=== PATIENT | male | born 1960 | race African-American/Black ===

== ENCOUNTER 2017-03-24 13:03 | Observation (INO) | payer BC, MEDICARE ==
[~2017-03-24] VITALS: Ht 182.9 cm; Wt 103.5 kg
[~2017-03-24 13:03] MED LIST: AMLO5TAB2 PO; BETH25TA2 PO; CHOL10008 PO; CRANCAP10 PO; FURO1TAB60 PO; LOSA50TA PO; MAGN400T3 PO; METO50TA PO; MILL5TAB PO; MULTTAB4 PO; NOVOLOGSS IMPLANT; PANT40TA3 PO; PHOSTAB2 PO; TACR1CAP14 PO; TACR1CAP15 PO; TAMS5CAP PO; TUMS500C CHEW; VIAG100T PO
[2017-03-24 13:06] VITALS: BP 157/82; PULSE 88; RESP 16; TEMP 98.5; O2SAT 97
--- NOTE | 2017-03-24 13:22 | PD ---
HPI Chief Complaint: Complaint Time Seen by Provider: 13:11 Travel History International Travel<30 days: No Contact w/Intl Traveler<30days: No Traveled to known affect area: No History of Present Illness HPI 56-year-old male presents to the emergency department complaining of hematuria that started this morning about 11 AM. Patient denies clots but states that he may have some mucus in his urine. Patient says he occasionally has discomfort with urination but some of this discomfort is located in the right lower quadrant and feels like a 'strain'. Patient does not describe this as pain but more discomfort. Patient has never had hematuria before. 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 He was on dialysis prior to his kidney transplant. In addition he has had to self catheter 4 times a day however, he is able to urinate on his own today. Patient follows urology and nephrology regularly. Patient denies fever, chills , nausea, vomiting, diarrhea. PFSH Past Medical History Arthritis: Yes (Left Foot) Asthma: No Autoimmune Disease: No Heart Rhythm Problems: No Cancer: No Cardiovascular Problems: No High Cholesterol: No Chest Pain: No Congestive Heart Failure: No COPD: No Diabetes: Yes Dialysis: Yes (HX) Diminished Hearing: No Endocrine: Yes GERD: Yes Genitourinary: Yes (hx of prostate cancer with pt,s father) Hiatal Hernia: No Hypertension: Yes Immune Disorder: No Implanted Vascular Access Dvce: Yes Kidney Stones: No Musculoskeletal: No Neurologic: No Psychiatric: No Reproductive: No Respiratory: No Immunizations Current: Yes Renal Failure: Yes Sleep Apnea: No Thyroid Disease: No Ulcer: No Past Surgical History Arteriovenous Shunt: Yes Body Medical Devices: left fistula Genitourinary Surgery: Yes (RIGHT KIDNEY TRANSPLANT) Oral Surgery: Yes (tonsil uvulectomy) Tonsillectomy: Yes (AND UVULA) Other Surgery: Yes (AV FISTULA) Social History Alcohol Use: No Tobacco Use: No Substance Use: No Allergies-Medications (Allergen,Severity, Reaction): Coded Allergies: No Known Allergies (Verified Adverse Reaction, Unknown, 03/24/17) Reported Meds & Prescriptions Reported Meds & Active Scripts Active Bethanechol 25 Mg Tab 25 Mg PO Q8HR Reported Prednisone 5 Mg Tab 5 Mg PO DAILY Multi Vitamin Mens (Multiple Vitamin) 1 Tab Tab 1 Cap PO DAILY Vitamin D3 (Cholecalciferol) 1,000 Unit Cap 1,000 Units PO DAILY Amlodipine (Amlodipine Besylate) 5 Mg Tab 5 Mg PO DAILY Astagraf Xl (Tacrolimus) 1 Mg Cap 1 Mg PO BID Astagraf Xl (Tacrolimus) 5 Mg Cap 5 Mg PO BID Phospha 250 Neutral (Pot Phos (Monobasic)-Sod Phos (di/monobasic)) 155-852-130 Mg Tab 250 Tab PO DAILY Pantoprazole (Pantoprazole Sodium) 40 Mg Tab 40 Mg PO DAILY Novolog Inj (Insulin Aspart) 100 Unit/Ml Inj 100 IMPLANT DIRECTED Magnesium 400 Mg Tab 1,000 Mg PO TID Losartan (Losartan Potassium) 50 Mg Tab 50 Mg PO BID Lasix (Furosemide) 40 Mg Tab 40 Mg PO DAILY Cranberry Plus Vitamin C (Cranberry-Vitamin C-Vitamin E) 4,200-20-3 Mg-Mg-Unit Cap 4,200 Cap PO DAILY Tums (Calcium Carbonate (Antacid)) 500 Mg Chew 500 Mg CHEW PRN Flomax (Tamsulosin HCl) 0.4 Mg Cap 2 Cap PO HS Patient take one in the morning and one at night Viagra (Sildenafil Citrate) 100 Mg Tab 100 Mg PO DAILY PRN Metoprolol Tartrate 50 Mg Tab 50 Mg PO BID Review of Systems Except as stated in HPI: all other systems reviewed are Neg Genitourinary: Positive: Hematuria Physical Exam Narrative GENERAL: Well-nourished, well-developed patient. SKIN: Focused skin assessment warm/dry. Vitiligo HEAD: Normocephalic. EYES: No scleral icterus. No injection or drainage. CARDIOVASCULAR: Regular rate and rhythm without murmurs, gallops, or rubs. RESPIRATORY: Breath sounds equal bilaterally. No accessory muscle use. GASTROINTESTINAL: Abdomen soft, non-tender, nondistended. Abdominal pelvic region- bladder distended with only mild discomfort to palpation. Otherwise no masses or guarding. No rebound tenderness. MUSCULOSKELETAL: No cyanosis, or edema. BACK: Nontender without obvious deformity. No CVA tenderness. Data Data Last Documented VS Vital Signs Date Time Temp Pulse Resp B/P (MAP) Pulse Ox O2 Delivery O2 Flow Rate FiO2 03/24/17 16:00 88 16 152/72 (98) 100 Room Air 03/24/17 13:06 98.5 Orders Orders Complete Blood Count With Diff (03/24/17 13:23) Comprehensive Metabolic Panel (03/24/17 13:23) Urinalysis - C+S If Indicated (03/24/17 13:23) Ecg Monitoring (03/24/17 13:23) Iv Access Insert/Monitor (03/24/17 13:23) Sodium Chloride 0.9% Flush (Ns Flush) (03/24/17 13:30) Ct Abd/Pel W/O Iv Contrast (03/24/17 ) Urine Culture (03/24/17 13:40) Sodium Chlorid 0.9% 500 Ml Inj (Ns 500 M (03/24/17 15:00) Ceftriaxone Inj (Rocephin Inj) (03/24/17 16:00) Insulin Human Regular Inj (Novolin R Inj (03/24/17 16:15) Urinary Catheter Insert/Apply (03/24/17 16:15) Place In Observation (03/24/17 ) Vital Signs (Adult) Q4H (03/24/17 17:07) Activity Oob Ad [place] (03/24/17 17:07) Bedside Glucose TA.CSUGAR (03/24/17 17:07) Intake + Output TA.QSHIFT (03/24/17 17:07) Diet Heart Healthy (03/24/17 Dinner) Sodium Chlor 0.9% 1000 Ml Inj (Ns 1000 M (03/24/17 18:00) Sodium Chloride 0.9% Flush (Ns Flush) (03/24/17 17:15) Sodium Chloride 0.9% Flush (Ns Flush) (03/24/17 21:00) Acetaminophen (Tylenol) (03/24/17 17:15) Ondansetron Inj (Zofran Inj) (03/24/17 17:15) Comprehensive Metabolic Panel (03/25/17 06:00) Complete Blood Count With Diff (03/25/17 06:00) Resp Oxygen Leroy C Titrat 1-4 L (03/24/17 ) Case Management Consult (03/24/17 17:07) Scd Bilateral/Knee High TA.BID (03/24/17 17:07) Admit Order (Ed Use Only) (03/24/17 ) Labs Laboratory Tests Test 03/24/17 13:40 White Blood Count 7.4 TH/MM3 Red Blood Count 3.64 MIL/MM3 Hemoglobin 10.5 GM/DL Hematocrit 32.6 % Mean Corpuscular Volume 89.6 FL Mean Corpuscular Hemoglobin 29.0 PG Mean Corpuscular Hemoglobin Concent 32.4 % Red Cell Distribution Width 15.2 % Platelet Count 198 TH/MM3 Mean Platelet Volume 7.6 FL Neutrophils (%) (Auto) 82.6 % Lymphocytes (%) (Auto) 6.0 % Monocytes (%) (Auto) 10.5 % Eosinophils (%) (Auto) 0.8 % Basophils (%) (Auto) 0.1 % Neutrophils # (Auto) 6.1 TH/MM3 Lymphocytes # (Auto) 0.4 TH/MM3 Monocytes # (Auto) 0.8 TH/MM3 Eosinophils # (Auto) 0.1 TH/MM3 Basophils # (Auto) 0.0 TH/MM3 CBC Comment DIFF FINAL Differential Comment Urine Color LIGHT-YELLOW Urine Turbidity CLOUDY Urine pH 6.0 Urine Specific [place] 1.012 Urine Protein 30 mg/dL Urine Glucose (UA) 1000 mg/dL Urine Ketones NEG mg/dL Urine Occult Blood LARGE Urine Nitrite NEG Urine Bilirubin NEG Urine Urobilinogen LESS THAN 2.0 MG/DL Urine Leukocyte Esterase LARGE Urine RBC 4-9 /hpf Urine WBC /hpf Urine WBC Clumps FEW Urine Squamous Epithelial Cells 0-5 /hpf Urine Bacteria MOD /hpf Urine Yeast with Hyphae MOD Urine Yeast (Budding) FEW Microscopic Urinalysis Comment CULTURE INDICATED Blood Urea Nitrogen 36 MG/DL Creatinine 2.61 MG/DL Random Glucose 572 MG/DL Total Protein 7.9 GM/DL Albumin 2.5 GM/DL Calcium Level 9.4 MG/DL Alkaline Phosphatase 70 U/L Aspartate Amino Transf (AST/SGOT) 23 U/L Alanine Aminotransferase (ALT/SGPT) 29 U/L Total Bilirubin 0.3 MG/DL Sodium Level 133 MEQ/L Potassium Level 4.4 MEQ/L Chloride Level 100 MEQ/L Carbon Dioxide Level 24.5 MEQ/L Anion Gap 9 MEQ/L Estimat Glomerular Filtration Rate 31 ML/MIN Phosphorus Level 2.5 MG/DL Magnesium Level 1.7 MG/DL [facility] Medical Decision Making Medical Screen Exam Complete: Yes Emergency Medical Condition: Yes Differential Diagnosis UTI versus hydronephrosis versus cystitis versus nephritis Narrative Course 56-year-old male presents to the emergency department complaining of hematuria that started this morning about 11 AM. Patient denies clots but states that he may have some mucus in his urine. Patient says he occasionally has discomfort with urination but some of this discomfort is located in the right lower quadrant and feels like a strain. Patient does not describe this as pain but more discomfort. Patient is never had hematuria before. 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 He was on dialysis prior to his kidney transplant. In addition he has had to self catheter 4 times a day however, he is able to urinate on his own today. Patient follows urology and nephrology regularly. Patient denies fever, chills , nausea, vomiting, diarrhea. Vital signs stable. Laboratory Tests Test 03/24/17 13:40 Red Blood Count 3.64 MIL/MM3 (4.50-5.90) Hemoglobin 10.5 GM/DL (13.0-17.0) Hematocrit 32.6 % (39.0-51.0) Neutrophils (%) (Auto) 82.6 % (16.0-70.0) Lymphocytes (%) (Auto) 6.0 % (9.0-44.0) Monocytes (%) (Auto) 10.5 % (0.0-8.0) Lymphocytes # (Auto) 0.4 TH/MM3 (1.0-4.8) Urine Turbidity CLOUDY (CLEAR) Urine Protein 30 mg/dL (NEG-TRACE) Urine Glucose (UA) 1000 mg/dL (NEG) Urine Occult Blood LARGE (NEG) Urine Leukocyte Esterase LARGE (NEG) Urine RBC 4-9 /hpf (0-3) Urine WBC Clumps FEW (NONE) Urine Bacteria MOD /hpf (NONE) Urine Yeast with Hyphae MOD (NONE) Urine Yeast (Budding) FEW (NONE) Blood Urea Nitrogen 36 MG/DL (7-18) Creatinine 2.61 MG/DL (0.60-1.30) Random Glucose 572 MG/DL (74-106) Albumin 2.5 GM/DL (3.4-5.0) Sodium Level 133 MEQ/L (136-145) Estimat Glomerular Filtration Rate 31 ML/MIN (>89) CT abdomen and pelvis 1. There is moderate to severe right lower quadrant transplant kidney hydronephrosis and hydroureter. 2. Urinary bladder is abnormal with a thick wall, trabeculated appearance and numerous diverticuli. 3. Left basilar atelectasis. Insulin 10U administered for hyperglycemia. Pt has a bolus pump, however states he has not been giving himself insulin. Patient BUN/creatinine is higher than normal for him. Administered normal saline bolus 500. Rocephin 2 g IV administered I discussed this case with Dr. Dao, his urologist. He recommended larger urinary catheter as he has BPH with obstruction. Placed Simon catheter as originally planned. Because of patient's complicated medical history with a single kidney transplant , DM I/II, and BPH with obstruction, I recommend admitting this patient for observation. Patient is stable. Recommend trending BUN/creatinine and consider repeating imaging study. Thank you Dr. Breaux for taking this patient. Physician Communication Physician Communication I spoke with Dr. Dao regarding this patient. He is very familiar with Mr. Boland. He recommended a Simon catheter as originally planned. He agreed the plan for IV antibiotics and admission. Diagnosis Primary Impression: Hyperglycemia due to type 1 diabetes mellitus Additional Impressions: UTI (lower urinary tract infection) Hydronephrosis of kidney transplant BPH with urinary obstruction Admitting Information Admitting Physician Requests: Admit Condition: Stable Rocio Andrews Mar 24, 2017 13:22
[2017-03-24] MEDS ORDERED: SODIUM CHLORIDE 0.9% FLUSH 10 ML FLUSH IVF PRN (13:30)
[2017-03-24 14:16] LABS: AUTOMATED NEUTROPHIL # 6.1 TH/MM3 (1.8-7.7); BASOPHIL % 0.1 % (0.0-2.0); EOSINOPHIL # 0.1 TH/MM3 (0-0.4); EOSINOPHIL % 0.8 % (0.0-4.0); HEMATOCRIT 32.6 % (39.0-51.0); HEMO FLAGS DIFF FINAL; LYMPHOCYTE # 0.4 TH/MM3 (1.0-4.8); MEAN CELL VOLUME 89.6 FL (80.0-100.0); MEAN CORPUSCULAR HGB CONC 32.4 % (32.0-36.0); MONO % 10.5 % (0.0-8.0); NEUT % 82.6 % (16.0-70.0); PLATELET COUNT 198 TH/MM3 (150-450); RED BLOOD COUNT 3.64 MIL/MM3 (4.50-5.90); RED CELL DISTRIBUTION WIDTH 15.2 % (11.6-17.2); WHITE BLOOD COUNT 7.4 TH/MM3 (4.0-11.0)
[2017-03-24 14:23] LABS: BLOOD, URINE LARGE (NEG); GLUCOSE,URINE 1000 mg/dL (NEG); KETONE, URINE NEG (NEG); NITRITE,URINE NEG (NEG); URINE COLOR LIGHT-YELLOW (YELLW/STRAW)
[2017-03-24 14:37] LABS: ALKALINE PHOSPHATASE 70 U/L (45-117); ALT (GPT) 29 U/L (12-78); ANION GAP 9 MEQ/L (5-15); AST (GOT) 23 U/L (15-37); BICARBONATE 24.5 MEQ/L (21.0-32.0); BLOOD UREA NITROGEN 36 MG/DL (7-18); CHLORIDE 100 MEQ/L (98-107); GLOMERULAR FILTRATION RATE 31 ML/MIN (>89); POTASSIUM 4.4 MEQ/L (3.5-5.1); SODIUM (NA) 133 MEQ/L (136-145); TOTAL BILIRUBIN ADULT 0.3 MG/DL (0.2-1.0)
[2017-03-24 14:40] LABS: BACTERIA, URINE MOD /hpf; COMMENT (UR) CULTURE INDICATED; CULTURE IF INDICATED CULTURE INDICATED; SQUAMOUS EPITHELIAL CELL URINE 0-5 /hpf (0-5)
[2017-03-24] MEDS ORDERED: SODIUM CHLORID 0.9% 500 ML INJ 500 ML IV ONE (15:00)
--- NOTE | 2017-03-24 15:18 | RADRPT ---
EXAM DATE/TIME: 03/24/2017 14:58 [facility] COMPARISON: CT ABDOMEN & PELVIS W/O CONTRAST, June 07, 2013, 1:28. INDICATIONS : Hematuria. ORAL CONTRAST: No oral contrast ingested. RADIATION DOSE: 8.57 CTDIvol (mGy) MEDICAL HISTORY : Renal failure, chronic. SURGICAL HISTORY : Kidney transplant. ENCOUNTER: Initial ACUITY: 1 day PAIN SCALE: 0/10 LOCATION: Bilateral abdomen. TECHNIQUE: Volumetric scanning of the abdomen and pelvis was performed. Using automated exposure control and ad justment of the mA and/or kV according to patient size, radiation dose was kept as low as reasonably achievable to obtain optimal diagnostic quality images. DICOM format image data is available electro nically for review and comparison. FINDINGS: There is atelectasis at the left lung base. Unenhanced appearance of the liver, gallbladder, spleen, pancreas, adrenal glands within normal limits. Atrophic kidneys are noted bilaterally. There is a tra nsplant kidney in the right lower quadrant which demonstrates severe hydronephrosis and ureteral dila tation. The bladder is thick walled with a trabeculated appearance and numerous diverticuli. Prostate unremarkable. No evidence of bowel obstruction. Stomach is unremarkable. There is mild perinephric s tranding a transplant kidney. CONCLUSION: 1. There is moderate to severe right lower quadrant transplant kidney hydronephrosis and hydroureter. 2. Urinary bladder is abnormal with a thick wall, trabeculated appearance and numerous diverticuli. 3. Left basilar atelectasis. Mykel Parry MD on March 24, 2017 at 15:15 Board Certified Radiologist. This report was verified electronically.
[2017-03-24 16:00] VITALS: BP 152/72; PULSE 88; RESP 16; O2SAT 100
[2017-03-24] MEDS ORDERED: cefTRIAXone INJ 2,000 MG in SODIUM CHLORIDE 0.9% INJ 100 ML IV ONE (16:00)
[2017-03-24] MEDS ORDERED: INSULIN HUMAN REGULAR 1,000 UNITS/10 ML VIAL SQ ONE (16:15)
--- NOTE | 2017-03-24 16:20 | PD ---
Physical Exam Narrative I, Dr. Mcintyre, have reviewed the advance practice practitioner's documentation and am in agreement, met with the patient face to face, made the diagnosis, and the medical decision making was done by me. *My assessment and Findings: UTI vs. Renal cell carcinoma vs. Bladder mass 56yo M with BPH, self catheterization, renal transplant here with new onset gross hematuria. Labs reviewed, no leukocytosis. Glucose elevated at 572. Normal anion gap. Pt has not given himself insulin via the his insulin pump since 9am. Will give 10 units of regular insulin. BUN/creatinine elevated at 36/2.61, this is higher than his baseline. UA showed large leukocyte. Moderate bacteria. Pt given ceftriaxone 1gm IV. CTa/p showed moderate to severe right lower quadrant transplant kidney hydronephrosis and hydroureter. Urinary bladder is abnormal with a thick wall. Dr. Dao was called since that is his urologist and recommended nath cath insertion. Pt to be admitted for worsening kidney function and UTI. Data Data Last Documented VS Vital Signs Date Time Temp Pulse Resp B/P (MAP) Pulse Ox O2 Delivery O2 Flow Rate FiO2 03/24/17 16:00 88 16 152/72 (98) 100 Room Air 03/24/17 13:06 98.5 Orders Orders Complete Blood Count With Diff (03/24/17 13:23) Comprehensive Metabolic Panel (03/24/17 13:23) Urinalysis - C+S If Indicated (03/24/17 13:23) Ecg Monitoring (03/24/17 13:23) Iv Access Insert/Monitor (03/24/17 13:23) Sodium Chloride 0.9% Flush (Ns Flush) (03/24/17 13:30) Ct Abd/Pel W/O Iv Contrast (03/24/17 ) Urine Culture (03/24/17 13:40) Sodium Chlorid 0.9% 500 Ml Inj (Ns 500 M (03/24/17 15:00) Ceftriaxone Inj (Rocephin Inj) (03/24/17 16:00) Insulin Human Regular Inj (Novolin R Inj (03/24/17 16:15) Urinary Catheter Insert/Apply (03/24/17 16:15) Place In Observation (03/24/17 ) Vital Signs (Adult) Q4H (03/24/17 17:07) Activity Oob Ad [place] (03/24/17 17:07) Bedside Glucose TA.CSUGAR (03/24/17 17:07) Intake + Output TA.QSHIFT (03/24/17 17:07) Sodium Chlor 0.9% 1000 Ml Inj (Ns 1000 M (03/24/17 18:00) Sodium Chloride 0.9% Flush (Ns Flush) (03/24/17 17:15) Sodium Chloride 0.9% Flush (Ns Flush) (03/24/17 21:00) Acetaminophen (Tylenol) (03/24/17 17:15) Ondansetron Inj (Zofran Inj) (03/24/17 17:15) Comprehensive Metabolic Panel (03/25/17 06:00) Complete Blood Count With Diff (03/25/17 06:00) Resp Oxygen Leroy C Titrat 1-4 L (03/24/17 ) Case Management Consult (03/24/17 17:07) Scd Bilateral/Knee High TA.BID (03/24/17 17:07) Admit Order (Ed Use Only) (03/24/17 ) Labs Laboratory Tests Test 03/24/17 13:40 White Blood Count 7.4 TH/MM3 Red Blood Count 3.64 MIL/MM3 Hemoglobin 10.5 GM/DL Hematocrit 32.6 % Mean Corpuscular Volume 89.6 FL Mean Corpuscular Hemoglobin 29.0 PG Mean Corpuscular Hemoglobin Concent 32.4 % Red Cell Distribution Width 15.2 % Platelet Count 198 TH/MM3 Mean Platelet Volume 7.6 FL Neutrophils (%) (Auto) 82.6 % Lymphocytes (%) (Auto) 6.0 % Monocytes (%) (Auto) 10.5 % Eosinophils (%) (Auto) 0.8 % Basophils (%) (Auto) 0.1 % Neutrophils # (Auto) 6.1 TH/MM3 Lymphocytes # (Auto) 0.4 TH/MM3 Monocytes # (Auto) 0.8 TH/MM3 Eosinophils # (Auto) 0.1 TH/MM3 Basophils # (Auto) 0.0 TH/MM3 CBC Comment DIFF FINAL Differential Comment Urine Color LIGHT-YELLOW Urine Turbidity CLOUDY Urine pH 6.0 Urine Specific [place] 1.012 Urine Protein 30 mg/dL Urine Glucose (UA) 1000 mg/dL Urine Ketones NEG mg/dL Urine Occult Blood LARGE Urine Nitrite NEG Urine Bilirubin NEG Urine Urobilinogen LESS THAN 2.0 MG/DL Urine Leukocyte Esterase LARGE Urine RBC 4-9 /hpf Urine WBC /hpf Urine WBC Clumps FEW Urine Squamous Epithelial Cells 0-5 /hpf Urine Bacteria MOD /hpf Urine Yeast with Hyphae MOD Urine Yeast (Budding) FEW Microscopic Urinalysis Comment CULTURE INDICATED Blood Urea Nitrogen 36 MG/DL Creatinine 2.61 MG/DL Random Glucose 572 MG/DL Total Protein 7.9 GM/DL Albumin 2.5 GM/DL Calcium Level 9.4 MG/DL Alkaline Phosphatase 70 U/L Aspartate Amino Transf (AST/SGOT) 23 U/L Alanine Aminotransferase (ALT/SGPT) 29 U/L Total Bilirubin 0.3 MG/DL Sodium Level 133 MEQ/L Potassium Level 4.4 MEQ/L Chloride Level 100 MEQ/L Carbon Dioxide Level 24.5 MEQ/L Anion Gap 9 MEQ/L Estimat Glomerular Filtration Rate 31 ML/MIN Hemoglobin A1c 14.6 % Phosphorus Level 2.5 MG/DL Magnesium Level 1.7 MG/DL Tacrolimus (Prograf) Level 10.7 NG/ML MDM Supervised Visit with EVANGELINA: Yes Diagnosis Primary Impression: Hyperglycemia due to type 1 diabetes mellitus Additional Impressions: Hydronephrosis of kidney transplant UTI (lower urinary tract infection) BPH with urinary obstruction Admitting Information Admitting Physician Requests: Admit Condition: Stable Noemy Mcintyre DO Mar 24, 2017 16:20
[2017-03-24] MEDS ORDERED: ONDANSETRON HCL 4 MG/2 ML VIAL IVP PRN (17:15)
[2017-03-24] MEDS ORDERED: SODIUM CHLORIDE 0.9% FLUSH 10 ML FLUSH IV FLUSH PRN (17:15)
[2017-03-24] MEDS ORDERED: GLUCAGON 1 MG/ML VIAL OTHER PRN (17:45)
[2017-03-24] MEDS ORDERED: DEXTROSE 50% IN WATER 50 ML VIAL(D50) IV PUSH PRN (17:45)
[2017-03-24] MEDS: SODIUM CHLOR 0.9% 1000 ML INJ 1,000 ML IV SCH (17:57)
--- NOTE | 2017-03-24 18:07 | HHI.HP ---
HPI Service [facility] Primary Care Physician Unknown Admission Diagnosis Hematuria, hydronephrosis Diagnoses: Chief Complaint: Hematuria Travel History International Travel<30 Days: No Contact w/Intl Traveler <30 Da: No Traveled to Known Affected Are: No History of Present Illness This is a 56yo male with past medical history significant for previous kidney transplant on immunosuppressives, hypertension, diabetes status post insulin pump implantation, BPH with twice-daily self catheterizations and CKD who presents to [facility] with complaints of hematuria 1 day. Patient states he was at work around 11:30 this morning when he noticed significant amount of gross hematuria with voiding. He denies any clot formation. He denies any associated fever, chills, nausea, vomiting or abdominal pain. He denies any increase or decrease in urinary output. He denies any dysuria, hesitancy, urgency or frequency. He denies any sensation of incomplete emptying. Patient endorses self-catheterization morning and night with 250-400cc of urine output in addition to voiding on his own throughout the day. Patient follows with Dr. Medellin of nephrology and Dr. Dao of urology. Patient has a insulin pump and states that his blood sugars run between 179 and 200 but admits that he has not checked his blood sugar in quite some time. He denies any increase in thirst, polyuria or polydipsia. Patient states he drinks about a liter of water a day. He denies any diarrhea or constipation. In the ED, she was noted to have acute kidney failure with a creatinine level of 2.61. He has elevated glucose level 572. UA was highly suggestive of urinary tract infection. CT of the abdomen and pelvis was obtained showing moderate to severe right lower quadrant transplant kidney hydronephrosis and hydroureter and urinary bladder abnormality with thick wall, trabeculated appearance of numerous diverticuli. Review of Systems Except as stated in HPI: all other systems reviewed are Neg Past Family Social History Past Medical History s/p kidney transplant 2012 on immunosuppressives HTN CKD DM, s/p implantation of insulin pump GERD BPH with obstruction, self caths 2x/day Past Surgical History Right kidney transplant Tonsillectomy Uvulectomy Reported Medications Bethanechol 25 Mg Tab 25 Mg PO Q8HR Multi Vitamin Mens (Multiple Vitamin) 1 Tab Tab 1 Cap PO DAILY Vitamin D3 (Cholecalciferol) 1,000 Unit Cap 1,000 Units PO DAILY Amlodipine (Amlodipine Besylate) 5 Mg Tab 5 Mg PO DAILY Astagraf Xl (Tacrolimus) 1 Mg Cap 1 Mg PO DAILY Astagraf Xl (Tacrolimus) 5 Mg Cap 5 Mg PO DAILY Millipred (Prednisolone) 5 Mg Tab 5 Mg PO DAILY Phospha 250 Neutral (Pot Phos (Monobasic)-Sod Phos (di/monobasic)) 155-852-130 Mg Tab 250 Tab PO DAILY Pantoprazole (Pantoprazole Sodium) 40 Mg Tab 40 Mg PO DAILY Novolog Inj (Insulin Aspart) 100 Unit/Ml Inj 100 IMPLANT DIRECTED Magnesium 400 Mg Tab 400 Mg PO DAILY Losartan (Losartan Potassium) 50 Mg Tab 50 Mg PO DAILY Lasix (Furosemide) 40 Mg Tab 40 Mg PO DAILY Cranberry Plus Vitamin C (Cranberry-Vitamin C-Vitamin E) 4,200-20-3 Mg-Mg-Unit Cap 4,200 Cap PO DAILY Tums (Calcium Carbonate (Antacid)) 500 Mg Chew 500 Mg CHEW PRN Flomax (Tamsulosin HCl) 0.4 Mg Cap 2 Mg PO HS Patient take one in the morning and one at night Viagra (Sildenafil Citrate) 100 Mg Tab 100 Mg PO DAILY PRN Metoprolol Tartrate 50 Mg Tab 50 Mg PO BID Allergies: Coded Allergies: No Known Allergies (Verified Adverse Reaction, Unknown, 03/24/17) Active Ordered Medications Current Medications Medications (Trade) Dose Ordered Sig/Eufemia Route Start Time Stop Time Status Last Admin Sodium Chloride 1,000 ml @ 100 mls/hr Q10H IV 03/24/17 18:00 (NS Flush) 2 ml UNSCH PRN IV FLUSH 03/24/17 17:15 (NS Flush) 2 ml BID IV FLUSH 03/24/17 21:00 (Tylenol) 650 mg Q4H PRN PO 03/24/17 17:15 (Zofran Inj) 4 mg Q6H PRN IVP 03/24/17 17:15 Family History DM Prostate cancer Social History Patient denies any tobacco use, EtOH use or illicit drug use. Patient is and lives with his . 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 Physical Exam Vital Signs Vital Signs Date Time Temp Pulse Resp B/P (MAP) Pulse Ox O2 Delivery O2 Flow Rate FiO2 03/24/17 13:10 16 03/24/17 13:06 98.5 88 16 157/82 (107) 97 Physical Exam GENERAL: This is a well-nourished, well-developed patient, in no apparent distress. Awake and alert. Appears comfortable. SKIN: (+)Vitiligo. Cool and dry. HEAD: Atraumatic. Normocephalic. No temporal or scalp tenderness. EYES: Pupils equal round and reactive. Extraocular motions intact. No scleral icterus. No injection or drainage. ENT: Nose without bleeding or purulent drainage. Throat without erythema, tonsillar hypertrophy or exudate. Uvula midline. Airway patent. NECK: Trachea midline. No lymphadenopathy. Supple, nontender, no meningeal signs. CARDIOVASCULAR: Regular rate and rhythm without murmurs, gallops, or rubs. RESPIRATORY: Clear to auscultation. Breath sounds equal bilaterally. No wheezes , rales, or rhonchi. GASTROINTESTINAL: Abdomen soft, non-tender, nondistended. No hepato-splenomegaly , or palpable masses. No guarding. MUSCULOSKELETAL: Extremities without clubbing or cyanosis. (+)trace to 1+ pitting edema BLEs. No joint tenderness, effusion, or edema noted. No calf tenderness. GENITOURINARY: Nath cath in place with clear urine in bag. NEUROLOGICAL: Awake and alert. Able to move all extremities. Motor and sensory function intact in bilateral upper and lower extremities. Normal speech. Laboratory Laboratory Tests Test 03/24/17 13:40 White Blood Count 7.4 Red Blood Count 3.64 Hemoglobin 10.5 Hematocrit 32.6 Mean Corpuscular Volume 89.6 Mean Corpuscular Hemoglobin 29.0 Mean Corpuscular Hemoglobin Concent 32.4 Red Cell Distribution Width 15.2 Platelet Count 198 Mean Platelet Volume 7.6 Neutrophils (%) (Auto) 82.6 Lymphocytes (%) (Auto) 6.0 Monocytes (%) (Auto) 10.5 Eosinophils (%) (Auto) 0.8 Basophils (%) (Auto) 0.1 Neutrophils # (Auto) 6.1 Lymphocytes # (Auto) 0.4 Monocytes # (Auto) 0.8 Eosinophils # (Auto) 0.1 Basophils # (Auto) 0.0 CBC Comment DIFF FINAL Differential Comment Urine Color LIGHT-YELLOW Urine Turbidity CLOUDY Urine pH 6.0 Urine Specific [place] 1.012 Urine Protein 30 Urine Glucose (UA) 1000 Urine Ketones NEG Urine Occult Blood LARGE Urine Nitrite NEG Urine Bilirubin NEG Urine Urobilinogen LESS THAN 2.0 Urine Leukocyte Esterase LARGE Urine RBC 4-9 Urine WBC Urine WBC Clumps FEW Urine Squamous Epithelial Cells 0-5 Urine Bacteria MOD Urine Yeast with Hyphae MOD Urine Yeast (Budding) FEW Microscopic Urinalysis Comment CULTURE INDICATED Blood Urea Nitrogen 36 Creatinine 2.61 Random Glucose 572 Total Protein 7.9 Albumin 2.5 Calcium Level 9.4 Alkaline Phosphatase 70 Aspartate Amino Transf (AST/SGOT) 23 Alanine Aminotransferase (ALT/SGPT) 29 Total Bilirubin 0.3 Sodium Level 133 Potassium Level 4.4 Chloride Level 100 Carbon Dioxide Level 24.5 Anion Gap 9 Estimat Glomerular Filtration Rate 31 Date/Time Source Procedure Growth Status 03/24/17 13:40 Urine Random Urine Urine Culture Pending Received Result Diagram: 03/24/17 1340 03/24/17 1340 Imaging Last Impressions Abdomen/Pelvis CT 03/24/17 0000 Signed Impressions: Service Date/Time: Sunday, March 24, 2017 14:58 - CONCLUSION: 1. There is moderate to severe right lower quadrant transplant kidney hydronephrosis and hydroureter. 2. Urinary bladder is abnormal with a thick wall, trabeculated appearance and numerous diverticuli. 3. Left basilar atelectasis. MD Hanane Garber VTE Risk Assessment Caprini VTE Risk Assessment: No/Low Risk (score <= 1) Caprini Risk Assessment Model Point Value = 1 Point Value = 2 Point Value = 3 Point Value = 5 Age 41-60 Minor surgery BMI > 25 kg/m2 Swollen legs Varicose veins or History of unexplained or recurrent spontaneous Oral contraceptives or hormone replacement Sepsis (< 1 month) Serious lung disease, including pneumonia (< 1 month) Abnormal pulmonary function Acute myocardial infarction Congestive heart failure (< 1 month) History of inflammatory bowel disease Medical patient at bed rest Age 61-74 Arthroscopic surgery Major open surgery (> 45 min) Laparoscopic surgery (> 45 min) Malignancy Confined to bed (> 72 hours) Immobilizing plaster cast Central venous access Age >= 75 History of VTE Family history of VTE Factor V Leiden Prothrombin [id number] Lupus anticoagulant Anticardiolipin antibodies Elevated serum homocysteine Heparin-induced thrombocytopenia Other congenital or acquired thrombophilia Stroke (< 1 month) Elective arthroplasty Hip, pelvis, or leg fracture Acute spinal cord injury (< 1 month) Prophylaxis Regimen Total Risk Factor Score Risk Level Prophylaxis Regimen 0-1 Low Early ambulation 2 Moderate Order ONE of the following: *Sequential Compression Device (SCD) *Heparin 5000 units SQ BID 3-4 Higher Order ONE of the following medications: *Heparin 5000 units SQ TID *Enoxaparin/Lovenox 40 mg SQ daily (WT < 150 kg, CrCl > 30 mL/min) *Enoxaparin/Lovenox 30 mg SQ daily (WT < 150 kg, CrCl > 10-29 mL/min) *Enoxaparin/Lovenox 30 mg SQ BID (WT < 150 kg, CrCl > 30 mL/min) AND/OR *Sequential Compression Device (SCD) 5 or more Highest Order ONE of the following medications: *Heparin 5000 units SQ TID (Preferred with Epidurals) *Enoxaparin/Lovenox 40 mg SQ daily (WT < 150 kg, CrCl > 30 mL/min) *Enoxaparin/Lovenox 30 mg SQ daily (WT < 150 kg, CrCl > 10-29 mL/min) *Enoxaparin/Lovenox 30 mg SQ BID (WT < 150 kg, CrCl > 30 mL/min) AND *Sequential Compression Device (SCD) Assessment and Plan Assessment and Plan 56yo male with past medical history significant for previous kidney transplant on immunosuppressives, hypertension, diabetes status post insulin pump implantation, BPH with twice-daily self catheterizations and CKD who presents to [facility] with complaints of hematuria 1 day. UTI - UA positive for large occult blood, large leukocyte esterase, few white blood cells and moderate bacteria. Patient given IV ceftriaxone in ED. Continue. - Patient asymptomatic except for gross hematuria - follow up on urine culture results Kidney transplant hydronephrosis and hydroureter - CT abd/pelvis personally reviewed showing moderate to severe right lower quadrant transplant kidney hydronephrosis and hydroureter - Consult Dr. Dao who is well known to patient, appreciate assistance. Dr. Dao contacted while patient in the ED, recommended nath catheter. BPH with obstruction - patient self caths 2x/day - PSA 1.2 on 03/19/17 - resume on home Flomax - nath catheter mgmt for now Hematuria - ?traumatic self catheterization vs UTI vs bladder mass - CT abd/pelvis showing urinary bladder abnormality with thick wall, trabeculated appearance and numerous diverticuli - H/H stable. Continue to monitor CBC. - urine in nath bag clear at present, continue to monitor FITO on CKD - secondary to UTI, hydronephrosis and dehydration - Consult Dr. Medellin - obtain phosphate and mag level - Hold home Lasix - IVF hydration - creatinine 2.61 - avoid nephrotoxic agents - am labs to monitor kidney function HTN - Resume home antihypertensive - metoprolol 50 mg twice a day, amlodipine 5 mg daily and losartan 50 mg daily - Hold home Lasix - Monitor BP and adjust treatment accordingly Hx of kidney transplant 2012 on immunosuppressives - continue on Tacrolimus and prednisone - Obtain Tacrolimus level DM with hyperglycemia, not in DKA - patient admits to not checking blood sugars at home - patient has implanted insulin pump. Allow patient to manage. - accuchecks - ISS - obtain Hgb A1c. last A1c 9.1 10/2016. GERD - PPI DVT prophylaxis - hold chemoprophylaxis for now secondary to hematuria - bilateral SCD/BRADLEY hose Attestation Patient seen and examined with YURI Ny. The exam, history, and the medical decision-making described in the above note were completed with the assistance of the dictating practitioner. I attest that I had a [id number] encounter with the patient on the same day, and personally performed all of the history, exam, or medical decision making. Discussed case with him thoroughly after seeing the patient, reviewed and agreed with the plan. Please see addendum in History, Physical examination and Plan. See below for any errata/ additional input: This is a 56-year-old male with history of kidney transplant immunosuppressants , hypertension, diabetes mellitus, BPH and chronic kidney disease presenting with gross hematuria which started today. No previous symptoms. Denies any fever, chills, nausea, vomiting, frequency, urgency or abdominal pain. No previous history of kidney stones. Denies any weight loss. Patient also does not have any history of renal cancer or bladder cancer in the family. Works in the [employer] industry. He self catheterizes himself and urine output has always been normal until today. Not in distress Regular rate and rhythm Clear breath sounds Abdomen, soft, obese, no tenderness Nath catheter in place with white precipitates No edema Alert awake and oriented 3 Patient has acute kidney failure, baseline creatinine is around 1.5-1.7. Urinalysis suggestive UTI. CT scan of the abdomen and pelvis showed right lower quadrant constant kidney with hydronephrosis, hydroureter and thickened bladder wall with trabeculated appearance. Consult urology, keep Nath catheter in place, consult nephrology, start IVF. Check tacrolimus level. Continue immunosuppressants including prednisone. Follow-up urine culture, agree with ceftriaxone. Recheck BMP and CBC tomorrow. Follow-up urine culture. Discussed Condition With Patient, and Dr. Vidya Stratton Mar 24, 2017 18:07 Jeffrey Breaux MD Mar 24, 2017 18:41
[2017-03-24 18:40] VITALS: PULSE 75; RESP 20; TEMP 98.4; O2SAT 98
[2017-03-24 19:33] LABS: MAGNESIUM 1.7 MG/DL (1.5-2.5)
[2017-03-24 20:00] VITALS: BP 153/85; PULSE 81; RESP 18; TEMP 98.6; O2SAT 100
[2017-03-24] MEDS ORDERED: PRED5TAB PO (20:36)
[2017-03-24] MEDS ORDERED: TACROLIMUS 5 MG CAP PO ONE (21:00)
[2017-03-24] MEDS ORDERED: TAMSULOSIN HCL 0.4 MG CAP PO SCH (21:00)
[2017-03-24] MEDS ORDERED: TACROLIMUS 1 MG CAP PO ONE (21:00)
[2017-03-24] MEDS: SODIUM CHLORIDE 0.9% FLUSH 10 ML FLUSH IV FLUSH SCH (21:00)
[2017-03-24] MEDS: TAMSULOSIN HCL 0.4 MG CAP PO SCH (21:35)
[2017-03-24] MEDS: MAGNESIUM OXIDE 400 MG TAB PO SCH (21:36)
[2017-03-24] MEDS: METOPROLOL TARTRATE 50 MG TAB PO SCH (21:36)
[2017-03-24] MEDS: BETHANECHOL CHL 25 MG TAB PO SCH (21:36)
[2017-03-24] MEDS: INSULIN ASPART SUPPLEMENTAL SCALE SQ SCH (21:37)
[2017-03-24] MEDS ORDERED: BETHANECHOL CHL 25 MG TAB PO SCH (22:00)
[2017-03-24] MEDS: ACETAMINOPHEN 325 MG TAB PO PRN (23:17)
[2017-03-24 23:21] VITALS: TEMP 102.4
[2017-03-25] VITALS (10 sets, daily range): BP systolic 128–150; BP diastolic 68–81; PULSE 75–97; RESP 16–20; TEMP 98.5–102.8; O2SAT 95–98
[2017-03-25] MEDS: ACETAMINOPHEN 325 MG TAB PO PRN ×3 (03:30→19:54)
[2017-03-25] MEDS: SODIUM CHLOR 0.9% 1000 ML INJ 1,000 ML IV SCH ×2 (04:59→15:04)
[2017-03-25] MEDS: MAGNESIUM OXIDE 400 MG TAB PO SCH ×3 (05:02→20:58)
[2017-03-25] MEDS: PANTOPRAZOLE SOD 40 MG DELAYED RELEASE TAB PO SCH (07:48)
[2017-03-25] MEDS: amLODIPine BESYLATE 5 MG TAB PO SCH (07:49)
[2017-03-25] MEDS: predniSONE 5 MG TAB PO SCH (07:49)
[2017-03-25] MEDS: METOPROLOL TARTRATE 50 MG TAB PO SCH ×2 (07:49→19:54)
[2017-03-25] MEDS: CHOLECALCIFEROL (VIT D3) 1000 UNIT TAB PO SCH (07:49)
[2017-03-25] MEDS: LOSARTAN 50 MG TAB PO SCH (07:49)
[2017-03-25] MEDS: BETHANECHOL CHL 25 MG TAB PO SCH ×2 (07:49→19:54)
[2017-03-25] MEDS: MULTIVITAMIN TAB PO SCH (07:49)
[2017-03-25] MEDS: SODIUM CHLORIDE 0.9% FLUSH 10 ML FLUSH IV FLUSH SCH ×2 (07:51→19:55)
[2017-03-25] MEDS: INSULIN ASPART SUPPLEMENTAL SCALE SQ SCH ×4 (07:51→20:59)
[2017-03-25] MEDS ORDERED: PREDNISOLONE 5 MG PO SCH (09:00)
[2017-03-25] MEDS ORDERED: TACROLIMUS 1 MG PO SCH ×2 (09:00)
[2017-03-25] MEDS ORDERED: MAGNESIUM OXIDE 400 MG TAB PO SCH (09:00)
[2017-03-25] MEDS ORDERED: MULTIPLE VITAMIN PO SCH (09:00)
[2017-03-25] MEDS ORDERED: TACROLIMUS 5 MG PO SCH ×2 (09:00)
[2017-03-25 09:11] LABS: AUTOMATED NEUTROPHIL # 7.1 TH/MM3 (1.8-7.7); BASOPHIL % 0.5 % (0.0-2.0); EOSINOPHIL % 0.3 % (0.0-4.0); HEMATOCRIT 36.3 % (39.0-51.0); HEMO FLAGS DIFF FINAL; LYMPH % 5.9 % (9.0-44.0); LYMPHOCYTE # 0.5 TH/MM3 (1.0-4.8); MEAN CELL VOLUME 88.6 FL (80.0-100.0); MEAN CORPUSCULAR HEMOGLOBIN 29.7 PG (27.0-34.0); MEAN CORPUSCULAR HGB CONC 33.5 % (32.0-36.0); MONO % 11.3 % (0.0-8.0); PLATELET COUNT 169 TH/MM3 (150-450); RED CELL DISTRIBUTION WIDTH 15.1 % (11.6-17.2); WHITE BLOOD COUNT 8.6 TH/MM3 (4.0-11.0)
[2017-03-25 09:32] LABS: ALKALINE PHOSPHATASE 84 U/L (45-117); ALT (GPT) 36 U/L (12-78); ANION GAP 9 MEQ/L (5-15); AST (GOT) 34 U/L (15-37); BICARBONATE 23.3 MEQ/L (21.0-32.0); BLOOD UREA NITROGEN 28 MG/DL (7-18); CHLORIDE 102 MEQ/L (98-107); GLOMERULAR FILTRATION RATE 38 ML/MIN (>89); POTASSIUM 3.8 MEQ/L (3.5-5.1); SODIUM (NA) 134 MEQ/L (136-145); TOTAL BILIRUBIN ADULT 0.4 MG/DL (0.2-1.0)
[2017-03-25 09:38] LABS: HEMOGLOBIN A1a 1.3 %; HEMOGLOBIN A1b 1.5 %; HEMOGLOBIN Ao 67.5 %; HEMOGLOBIN F 2.8 %; HEMOGLOBIN LA1C 5.1 %; HEMOGLOBIN P3 7.3 %
[2017-03-25] MEDS: TACROLIMUS 1 MG PO SCH (12:42)
--- NOTE | 2017-03-25 13:23 | MB ---
cc: MIKAYLA PALACIOS MD DATE OF CONSULTATION: 03/25/2017. REASON FOR CONSULTATION: Acute renal failure management and setting up renal transplant. HISTORY OF PRESENT ILLNESS: This is a 56-year-old male with a history of renal transplant in 2012 here at [place]. The patient follows up as an outpatient with Dr. Yahaira Medellin. The patient also has a history of urinary self-catheterizations and benign prostate hypertrophy. The patient follows up with urology with Dr. Dao for this. The patient also has a history of diabetes and has insulin pump as well as hypertension. The patient presented to the emergency room yesterday with complaints of hematuria for one day. He apparently had hematuria with voiding and later had fevers. The patient had some vomiting x1 otherwise. However he reports that he has tried to stay well- hydrated other than that. He was seen in the emergency room and a CT of the abdomen revealed moderate to severe right lower quadrant kidney transplant hydronephrosis as well as hydroureter and a urinary bladder with thick wall and trabeculated appearance with numerous diverticula. Urology was consulted and then a Simon catheter was recommended. The patient had a Simon catheter placed and was started on IV fluids with normal saline at 100 cc/hour. Since his admission here yesterday, the patient has had 3.8 liters of urine output. The patient's urinalysis revealed bacteria and yeast and 1000 glucose was noted in the urinalysis as well. He was empirically started on ceftriaxone for a urinary tract infection. The patient reports his hematuria has cleared at this point. He is resting comfortably in bed with no distress. He did have a fever of 102 degrees earlier this morning and continues with ceftriaxone. His vital signs have otherwise been stable with a blood pressure of 150/68. Regarding his renal function, his apparent baseline creatinine here has ranged between 1.5 to 1.7 between July of 2015 and October of 2016. He reports his last creatinine level was at 1.7. His creatinine has improved overnight from 2.6 down to 2.1. Nephrology was consulted for further evaluation. PAST MEDICAL HISTORY: His past medical history includes: 1. Renal transplant in 2012 here at [facility] from a donor. The patient had previously been on hemodialysis for five years. 2. Also a history of chronic kidney disease. 3. Diabetes with insulin pump implantation. 4. Gastroesophageal reflux disease (GERD). 5. Benign prostate hypertrophy. 6. The patient does urinary self-catheterizations two to three times per day. PAST SURGICAL HISTORY: 1. Kidney transplant. 2. Tonsillectomy. 3. Uvulectomy. MEDICATIONS AT HOME: 1. Bethanechol. 2. A multivitamin. 3. Vitamin D3. 4. Norvasc 5 milligrams daily. 5. Astagraf, which is also known as Tacrolimus, 6 milligrams p.o. twice a day. 6. Prednisolone. 7. Millipred 5 milligrams p.o. daily. 8. Phosphorus supplements. 9. Protonix. 10. NovoLog insulin with pump. 11. Magnesium 400 milligrams p.o. daily. 12. Losartan 50 milligrams p.o. daily. 13. Lasix 40 milligrams p.o. daily. 14. Tums. 15. Flomax. 16. Viagra. 17. Metoprolol 50 milligrams p.o. twice a day. ALLERGIES: NO KNOWN DRUG ALLERGIES. FAMILY HISTORY: Diabetes and prostate cancer. SOCIAL HISTORY: No tobacco, alcohol or drug use. The patient is and lives at home with his . 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 PHYSICAL EXAMINATION: VITAL SIGNS: At the time of evaluation, temperature 99.9, pulse is 94, blood pressure 150/68, pulse oximetry 96% on room air. GENERAL: Awake, alert and oriented and in no apparent distress. HEAD, EYES, EARS, NOSE, THROAT: Neck soft supple. CARDIAC: Regular rate and rhythm. PULMONARY: Lungs clear to auscultation. ABDOMEN: The abdomen is soft, nontender and nondistended. EXTREMITIES: No edema. LABORATORY FINDINGS: White count 8.6, hemoglobin 12.1, hematocrit 36.3 with platelet count of 169,000. Sodium 134, potassium 3.8, chloride 102, bicarbonate 23, BUN 28, creatinine 2.18, previous creatinine was 2.61 yesterday, baseline creatinine is 1.7, glucose level 140, initial glucose on admission was 572, magnesium 1.7, phosphorus 2.5. Urinalysis with 30 protein, 1000 glucose, large occult blood, large leukocyte esterase, 4 to 9 RBCs, a few white blood cell clumps, moderate bacteria, moderate yeast. Urine cultures are pending. Prograf level was 10.7 at 1:00 p.m. yesterday. Blood cultures are pending. Urine culture is pending. ASSESSMENT AND PLAN: 1. Acute kidney injury and renal transplant: The patient has had a baseline creatinine that ranged between 1.5 and 1.9 and he reports that his last creatinine level was 1.7. He presented here with a creatinine of 2.6, which has improved to a level of 2.1 here. It appears that he has acute kidney injury secondary to mild volume depletion with recent emesis and fever as well as possible obstructive component given hydronephrosis and hydroureter. At this point, agree with IV fluids as ordered and continue with normal saline at 100 cc/hour. Urology was contacted in the emergency room and a Simon catheter was placed. The patient has had 3.8 liters of urine output so far. Will continue to follow with urology. Bladder diverticula were noted. The patient does self-catheterizations at home and it is unclear if this has been adequate. Continue to follow up with urology evaluation. Of note, the patient had been on Lasix at home and this has been held at this point given the acute kidney injury. Continue to closely monitor. Renal dose all medications and antibiotics. 2. Renal transplant: The patient had a renal transplant from a donor in 2012. He is currently on prednisone 5 milligrams daily as well as Prograf 6 milligrams p.o. twice a day. For his Prograf, he takes Astagraf XL. Will check Prograf levels in the morning. He had a Prograf level done yesterday afternoon. Will check daily a.m. Prograf levels before dose to check trough levels. Continue with dosing for now. Of note, the patient is not on CellCept. He reported he was on CellCept years ago; however, just maintains immunosuppression with Prednisone and Prograf. He follows closely with Dr. Medellin. 3. Hypertension: Blood pressure is stable at this time. Continue with Losartan and amlodipine and metoprolol. Should there be ongoing kidney injury, Losartan may be held; however, okay to continue for now as the patient is making great urine output. 4. Benign prostate hypertrophy: Continue with the patient's Flomax. He has a Simon catheter now and he self-catheterizes his urine at home. Continue to follow with urology consultation. 5. Diabetes: The patient presented with a glucose of 572. This has been improved to a level of 140 now. Continue with insulin pump. 6. Urinary tract infection: The patient has a urinalysis suggestive of urinary tract infection with presentation of hematuria. He has been started on Rocephin empirically. Continue to monitor blood and urine cultures. MD YAJAIRA Guillen/ANGELA /12:49 PM /1:01 PM MTDD
--- NOTE | 2017-03-25 13:38 | MB ---
cc: TERRIE YOON DATE OF CONSULTATION: 03/25/2017. HISTORY OF PRESENT ILLNESS: Mr. Boland is a pleasant 56-year-old male who underwent a kidney transplant back [place] [address] Nur. The patient has had ongoing benign prostate hypertrophy with obstruction and was being managed with Flomax 0.8 milligrams daily at bedtime. Approximately nine months ago he started on clean intermittent catheterization due to his incomplete bladder emptying. We have discussed TURP in the past but he has been hesitant, and so he has been on clean intermittent catheterization up to this time. Yesterday he had presented to the emergency room with evidence of gross hematuria and a CT scan demonstrated hydronephrosis with dilatation of the ureter and perinephric stranding was also noted concerning for pyelonephritis. He denies any fever or chills or abdominal pain. His creatinine on admission was 2.6, and his baseline is approximately 1.7. He did have an elevated glucose of 572 on admission. PAST MEDICAL HISTORY: His medical history is notable for: 1. A kidney transplant. 2. Hypertension. 3. Chronic kidney disease. 4. Diabetes. 5. Gastroesophageal reflux disease (GERD). 6. Benign prostate hypertrophy with obstruction. PAST SURGICAL HISTORY: 1. Right kidney transplant. 2. Tonsillectomy. 3. Uvulectomy. MEDICATIONS: For medications, please refer to the chart. ALLERGIES: HE HAS NO KNOWN DRUG ALLERGIES. FAMILY HISTORY: Family history is notable for prostate cancer and diabetes mellitus. SOCIAL HISTORY: He denies smoking, drinking or using drugs. REVIEW OF SYSTEMS: He denies fever or chills. He denies weight gain or weight loss. Denies difficulty with vision. Denies shortness of breath or chest pain. Denies any abdominal pain. Denies back pain. Denies any gait disturbances. There is no gross hematuria. Occasionally performs clean intermittent catheterization during the day with volumes ranging from the 200 to 400 range. Denies depression. The remaining review of systems were reviewed and were negative. PHYSICAL EXAMINATION: PRESENT VITAL SIGNS TODAY: T-max is 102, temperature a.m. is 99.9. Heart rate 94. Respiratory rate 20. 150/60 is his blood pressure. GENERAL: He is a well-developed, well-nourished 56-year-old male in no acute distress. HEAD, EYES, EARS, NOSE, THROAT: Normocephalic and atraumatic. Pupils equal, round regular and reactive to light. Extraocular muscles intact. NECK: The neck is supple. HEART: Regular rate and rhythm. LUNGS: Clear. ABDOMEN: Abdomen soft and nontender and nondistended. No pain is noted over the transplanted kidney site. GENITOURINARY: Normal phallus. Testes descended. Simon catheter in place. EXTREMITIES: Negative for cyanosis, clubbing or edema. LABORATORY VALUES: White count 8.6, hemoglobin 12.1, hematocrit 36.3, platelet count of 169,000. Sodium 134, potassium 3.8, chloride 102, carbon dioxide 23.3, BUN of 28, creatinine 2.1 today down from 2.6 yesterday, glucose presently at 140 down from 572. Urinalysis shows 1000 glucose, large blood, nitrate negative, 4 to 9 red cells, numerous white cells are noted. Urine culture shows Group B Strep. Blood cultures are currently pending. IMAGING STUDIES: CT scan of the abdomen and pelvis shows moderate to severe hydronephrosis of the right lower quadrant transplanted kidney. Bladder wall thickening is noted of the urinary bladder with a trabeculated appearance and diverticula are noted. ASSESSMENT: This is a 56-year-old male with history of a kidney transplant in 2013 with evidence of pyelonephritis and hydronephrosis of the transplanted right lower kidney with acute kidney injury and elevation of creatinine to 2.6 from his baseline of 1.5 to 1.7 range with hematuria. RECOMMENDATIONS: 1. Recommend to continue Simon catheter drainage for now. 2. His creatinine continues to improve and will eventually baseline. 3. Continue IV antibiotics for now. 4. In the future, the patient will need intervention for his benign prostate hypertrophy with obstruction and possibly a urolith versus a TURP. 5. Will maintain the catheter possibly until that procedure is to be scheduled which will be on outpatient basis after the infection clears. Will follow with you for now and thank you for the consult and for allowing me to participate in the care of this patient. Terrie TRACY/ANGELA /1:16 PM /1:29 PM
--- NOTE | 2017-03-25 15:54 | HHI.PR ---
Subjective Remarks Fevers overnight. Sepsis still present. No new complaints from the patient. He says he did not feel the urinary tract infection symptoms. Immunosuppressive therapy could explain why his white blood cell count is not significantly elevated. Objective Vital Signs Date Time Temp Pulse Resp B/P (MAP) Pulse Ox O2 Delivery O2 Flow Rate FiO2 03/25/17 12:00 98.5 75 18 134/71 (92) 98 03/25/17 12:00 Room Air 03/25/17 10:58 96 21 03/25/17 08:50 99.9 03/25/17 08:00 102.0 94 20 150/68 (95) 96 03/25/17 08:00 Room Air 03/25/17 05:00 101.0 03/25/17 04:00 93 17 142/81 (101) 96 03/25/17 04:00 101.6 03/25/17 04:00 Room Air 03/25/17 03:00 102.8 03/25/17 00:30 101.5 97 20 146/81 (102) 97 03/25/17 00:00 Room Air 03/24/17 23:21 102.4 03/24/17 20:00 98.6 81 18 153/85 (107) 100 03/24/17 20:00 Room Air 03/24/17 18:44 Room Air 03/24/17 18:40 98.4 75 20 98 03/24/17 18:07 03/24/17 16:00 88 16 152/72 (98) 100 Room Air I/O 03/24/17 03/24/17 03/24/17 03/25/17 03/25/17 03/25/17 07:00 15:00 23:00 07:00 15:00 23:00 Intake Total 2060 ml 1000 ml Output Total 400 ml 1300 ml 2100 ml Balance -400 ml -1300 ml -40 ml 1000 ml Intake Oral 2060 ml IV Total 1000 ml Output Urine Total 400 ml 1300 ml 2100 ml # Voids 3 2 Result Diagram: 03/25/1773903/25/1740 Objective Remarks GENERAL: NAD, A&Ox3 HEAD: Normocephalic. NECK: Supple, trachea midline. No lymphadenopathy. EYES: No scleral icterus. No injection or drainage. CARDIOVASCULAR: Regular rate and rhythm without murmurs, gallops, or rubs. RESPIRATORY: Breath sounds equal bilaterally. No accessory muscle use. GASTROINTESTINAL: Abdomen soft, non-tender, nondistended. MUSCULOSKELETAL: No cyanosis, or edema. SKIN: Warm and dry. Benign Vitiligo. NEURO: No focal neurological deficitis. A/P Problem List: (1) UTI (lower urinary tract infection) ICD Code: N39.0 - Lower urinary tract infectious disease Status: Acute (2) Acute renal failure ICD Code: N17.9 - Acute renal failure Status: Acute (3) BPH with urinary obstruction ICD Code: N40.1 - Benign prostatic hyperplasia with urinary obstruction; N13.8 - Other obstructive and reflux uropathy Status: Acute (4) Hydronephrosis of kidney transplant ICD Code: T86.19 - Hydronephrosis of kidney transplant; N13.30 - Unspecified hydronephrosis Status: Acute (5) Sepsis ICD Code: A41.9 - Sepsis, unspecified organism Assessment and Plan Assessment and Plan 56-year-old male admitted secondary to sepsis with complicated urinary tract infection Sepsis Not yet resolved Continue antibiotic treatments Continue IV fluids Monitor vital signs Follow on telemetry Complicated urinary tract infection Chronic Immunocompromise Hydronephrosis Hydroureter Hematuria Patient is a renal transplant patient which complicates this scenario Continue Rocephin Continue to monitor urine cultures Renal transplant patient Acute kidney injury on chronic kidney disease Chronic immunocompromise Continue tacrolimus Continue prednisone Nephrology following Follow renal function Avoid nephrotoxins Benign prostatic hypertrophy Continue Flomax Simon catheter continued HTN Continue metoprolol Continue amlodipine Continue losartan Monitor blood pressures Adjust if necessary Diabetes mellitus type 2 Follow blood sugars Insulin sliding scale Diabetic diet DVT prophylaxis SCDs Philip Woodall MD Mar 25, 2017 15:54
[2017-03-25] MEDS ORDERED: cefTRIAXone INJ 1,000 MG in SODIUM CHLORIDE 0.9% INJ 100 ML IV SCH (16:00)
[2017-03-25] MEDS: TAMSULOSIN HCL 0.4 MG CAP PO SCH (19:54)
[2017-03-26] VITALS (7 sets, daily range): BP systolic 111–149; BP diastolic 63–85; PULSE 74–87; RESP 16–19; TEMP 97.5–99.5; O2SAT 94–99
[2017-03-26] MEDS: SODIUM CHLOR 0.9% 1000 ML INJ 1,000 ML IV SCH ×3 (00:31→21:33)
[2017-03-26] MEDS: TACROLIMUS 1 MG PO SCH ×3 (00:39→21:40)
[2017-03-26] MEDS: MAGNESIUM OXIDE 400 MG TAB PO SCH ×3 (05:16→21:32)
[2017-03-26] MEDS: ACETAMINOPHEN 325 MG TAB PO PRN (05:16)
[2017-03-26 06:02] LABS: AUTOMATED NEUTROPHIL # 6.6 TH/MM3 (1.8-7.7); BASOPHIL % 0.2 % (0.0-2.0); EOSINOPHIL % 0.5 % (0.0-4.0); HEMATOCRIT 31.6 % (39.0-51.0); HEMO FLAGS DIFF FINAL; LYMPH % 7.8 % (9.0-44.0); LYMPHOCYTE # 0.6 TH/MM3 (1.0-4.8); MEAN CORPUSCULAR HEMOGLOBIN 28.9 PG (27.0-34.0); MEAN CORPUSCULAR HGB CONC 32.9 % (32.0-36.0); MONO % 10.4 % (0.0-8.0); NEUT % 81.1 % (16.0-70.0); PLATELET COUNT 178 TH/MM3 (150-450); RED BLOOD COUNT 3.59 MIL/MM3 (4.50-5.90); RED CELL DISTRIBUTION WIDTH 15.3 % (11.6-17.2); WHITE BLOOD COUNT 8.1 TH/MM3 (4.0-11.0)
[2017-03-26 06:33] LABS: ALKALINE PHOSPHATASE 67 U/L (45-117); ALT (GPT) 31 U/L (12-78); ANION GAP 8 MEQ/L (5-15); AST (GOT) 21 U/L (15-37); BICARBONATE 25.5 MEQ/L (21.0-32.0); BLOOD UREA NITROGEN 23 MG/DL (7-18); CHLORIDE 102 MEQ/L (98-107); GLOMERULAR FILTRATION RATE 45 ML/MIN (>89); MAGNESIUM 1.4 MG/DL (1.5-2.5); POTASSIUM 3.8 MEQ/L (3.5-5.1); SODIUM (NA) 135 MEQ/L (136-145); TOTAL BILIRUBIN ADULT 0.3 MG/DL (0.2-1.0)
[2017-03-26] MEDS: SODIUM CHLORIDE 0.9% FLUSH 10 ML FLUSH IV FLUSH SCH ×2 (09:00→21:00)
[2017-03-26] MEDS: CHOLECALCIFEROL (VIT D3) 1000 UNIT TAB PO SCH (09:06)
[2017-03-26] MEDS: predniSONE 5 MG TAB PO SCH (09:06)
[2017-03-26] MEDS: amLODIPine BESYLATE 5 MG TAB PO SCH (09:06)
[2017-03-26] MEDS: MULTIVITAMIN TAB PO SCH (09:06)
[2017-03-26] MEDS: LOSARTAN 50 MG TAB PO SCH (09:06)
[2017-03-26] MEDS: BETHANECHOL CHL 25 MG TAB PO SCH ×2 (09:06→21:41)
[2017-03-26] MEDS: METOPROLOL TARTRATE 50 MG TAB PO SCH ×2 (09:06→21:00)
[2017-03-26] MEDS: PANTOPRAZOLE SOD 40 MG DELAYED RELEASE TAB PO SCH (09:06)
[2017-03-26] MEDS: INSULIN ASPART SUPPLEMENTAL SCALE SQ SCH ×4 (09:07→21:41)
--- NOTE | 2017-03-26 09:42 | HHI.PR ---
Subjective Remarks The patient said that he was feeling fine. He wanted to go home soon. He said that he has not been having a productive cough. He said that he will start checking his blood sugars more frequently. He said once he goes home he will reactivate his insulin pump. Discussed with nursing. Objective Vitals Vital Signs Date Time Temp Pulse Resp B/P (MAP) Pulse Ox O2 Delivery O2 Flow Rate FiO2 03/26/17 08:03 98.6 82 18 149/85 (106) 95 03/26/17 04:00 Room Air 03/26/17 04:00 99.0 75 16 128/76 (93) 96 03/26/17 00:00 Room Air 03/26/17 00:00 99.5 74 16 111/64 (80) 95 03/25/17 20:00 101.3 94 16 131/69 (89) 96 03/25/17 20:00 Room Air 03/25/17 16:00 99.9 77 17 128/72 (90) 95 03/25/17 12:00 98.5 75 18 134/71 (92) 98 03/25/17 12:00 Room Air 03/25/17 10:58 96 21 I/O 03/25/17 03/25/17 03/25/17 03/26/17 03/26/17 03/26/17 07:00 15:00 23:00 07:00 15:00 23:00 Intake Total 2060 ml 3140 ml 2840 ml Output Total 2100 ml 2000 ml 1875 ml Balance -40 ml 1140 ml 965 ml Intake Oral 2060 ml 2040 ml 1840 ml IV Total 1100 ml 1000 ml Output Urine Total 2100 ml 2000 ml 1875 ml Result Diagram: 03/26/17 0535 03/26/17 0535 Imaging Last Impressions Abdomen/Pelvis CT 03/24/17 0000 Signed Impressions: Service Date/Time: Friday, March 24, 2017 14:58 - CONCLUSION: 1. There is moderate to severe right lower quadrant transplant kidney hydronephrosis and hydroureter. 2. Urinary bladder is abnormal with a thick wall, trabeculated appearance and numerous diverticuli. 3. Left basilar atelectasis. Mykel Parry MD Objective Remarks GENERAL: NAD, A&Ox3 HEAD: Normocephalic. NECK: Supple, trachea midline. No lymphadenopathy. EYES: No scleral icterus. No injection or drainage. CARDIOVASCULAR: Regular rate and rhythm without murmurs, gallops, or rubs. RESPIRATORY: Breath sounds equal bilaterally. No accessory muscle use. GASTROINTESTINAL: Abdomen soft, non-tender, nondistended. : Simon in place. MUSCULOSKELETAL: No cyanosis, or edema. SKIN: Warm and dry. Vitiligo noted. NEURO: No focal neurological deficitis. PSYCH: Mood and affect appropriate. Medications and IVs Current Medications Medications (Trade) Dose Ordered Sig/Eufemia Route Start Time Stop Time Status Last Admin Sodium Chloride 1,000 ml @ 100 mls/hr Q10H IV 03/24/17 18:00 03/26/17 09:07 (NS Flush) 2 ml UNSCH PRN IV FLUSH 03/24/17 17:15 (NS Flush) 2 ml BID IV FLUSH 03/24/17 21:00 03/25/17 19:55 (Tylenol) 650 mg Q4H PRN PO 03/24/17 17:15 03/26/17 05:16 (Zofran Inj) 4 mg Q6H PRN IVP 03/24/17 17:15 03/24/17 23:17 (D50w (Vial) Inj) 50 ml UNSCH PRN IV PUSH 03/24/17 17:45 (Glucagon Inj) 1 mg UNSCH PRN OTHER 03/24/17 17:45 (NovoLOG SUPPLEMENTAL SCALE) 1 ACHS SLIDING SCALE SQ 03/24/17 21:00 03/26/17 09:07 (Norvasc) 5 mg DAILY PO 03/25/17 09:00 03/26/17 09:06 (Vitamin D3) 1,000 units DAILY PO 03/25/17 09:00 03/26/17 09:06 (Cozaar) 50 mg DAILY PO 03/25/17 09:00 03/26/17 09:06 (Lopressor) 50 mg BID PO 03/24/17 21:00 03/26/17 09:06 (Protonix) 40 mg DAILY PO 03/25/17 09:00 03/26/17 09:06 (Theragran) 1 tab DAILY PO 03/25/17 09:00 03/26/17 09:06 Ceftriaxone Sodium 1000 mg/ Sodium Chloride 100 ml @ 200 mls/hr Q24H IV 03/25/17 16:00 03/25/17 17:12 (Flomax) 0.8 mg HS PO 03/24/17 21:00 03/25/17 19:54 Patient Own Medication PT OWN MED: ASTAG... BID PO 03/25/17 09:00 Future Hold (Mag-Ox) 1,000 mg Q8HR PO 03/24/17 22:00 03/26/17 05:16 (Urecholine) 25 mg Q12HR PO 03/24/17 21:00 03/26/17 09:06 (Deltasone) 5 mg DAILY PO 03/25/17 09:00 03/26/17 09:06 Patient Own Medication PT OWN MED: TACROLI... Q12H PO 03/25/17 10:00 03/26/17 00:39 A/P Assessment and Plan 56yo male with past medical history significant for previous kidney transplant on immunosuppressives, hypertension, diabetes status post insulin pump implantation, BPH with twice-daily self catheterizations and CKD who presents to [facility] with complaints of hematuria 1 day. UTI/ Fevers - UA positive for large occult blood, large leukocyte esterase, few white blood cells and moderate bacteria. Patient given IV ceftriaxone in ED. Culture growing group B beta strep. - Patient asymptomatic except for gross hematuria - continue ceftriaxone. - still spiking fevers. ID consult requested. Kidney transplant hydronephrosis and hydroureter - CT abd/pelvis personally reviewed showing moderate to severe right lower quadrant transplant kidney hydronephrosis and hydroureter - urology consult appreciated. Continue Simon catheter. BPH with obstruction - patient self caths 2x/day - PSA 1.2 on 03/19/17 - resume on home Flomax - Simon catheter mgmt for now Hematuria - ?traumatic self catheterization vs UTI vs bladder mass - CT abd/pelvis showing urinary bladder abnormality with thick wall, trabeculated appearance and numerous diverticuli - H/H stable. Continue to monitor CBC. - urine in Simon bag clear at present, continue to monitor FITO on CKD - secondary to UTI, hydronephrosis and dehydration - nephrology consult appreciated. - Hold home Lasix - IVF hydration - creatinine improving - avoid nephrotoxic agents - am labs to monitor kidney function HTN - Resume home antihypertensive - metoprolol 50 mg twice a day, amlodipine 5 mg daily and losartan 50 mg daily - Hold home Lasix - Monitor BP and adjust treatment accordingly Hx of kidney transplant 2012 on immunosuppressives - continue on Tacrolimus and prednisone - Obtain Tacrolimus level DM with hyperglycemia, not in DKA - patient admits to not checking blood sugars at home - patient has implanted insulin pump. - start Levemir 20 units daily, 3 units aspart AC. - accuchecks - ISS - obtain Hgb A1c. last A1c 9.1 10/2016. - tobacco prevention health educator consult appreciated. DVT prophylaxis - hold chemoprophylaxis for now secondary to hematuria - bilateral SCD/BRADLEY hose Discharge Planning Awaiting ID evaluation, improvement in fevers, nephrology clearance Yoel Rogers DO Mar 26, 2017 09:42
[2017-03-26] MEDS ORDERED: INSULIN DETEMIR 100 UNITS/ML VIAL SQ SCH (09:45)
[2017-03-26] MEDS: INSULIN ASPART 1,000 UNITS/10 ML VIAL SQ SCH ×2 (12:55→18:05)
--- NOTE | 2017-03-26 13:00 | HHI.PR ---
Subjective Patient symptoms today Pt seen and examined. Feeling well at present. Urine is clear. Objective Vital Signs Vital Signs Date Time Temp Pulse Resp B/P (MAP) Pulse Ox O2 Delivery O2 Flow Rate FiO2 03/26/17 12:23 98.3 80 18 116/63 (80) 96 03/26/17 08:03 98.6 82 18 149/85 (106) 95 03/26/17 04:00 Room Air 03/26/17 04:00 99.0 75 16 128/76 (93) 96 03/26/17 00:00 Room Air 03/26/17 00:00 99.5 74 16 111/64 (80) 95 03/25/17 20:00 101.3 94 16 131/69 (89) 96 03/25/17 20:00 Room Air 03/25/17 16:00 99.9 77 17 128/72 (90) 95 Intake & Output 03/26/17 03/26/17 07:00 19:00 Intake Total 4880 ml Output Total 3875 ml Balance 1005 ml Intake Oral 3880 ml IV Total 1000 ml Output Urine Total 3875 ml Result Diagram: 03/26/1753403/26/17534 Objective Remarks Abd:soft,nt,nd Nath clear with some sediment Medications and IVs Current Medications Medications (Trade) Dose Ordered Sig/Eufemia Route Start Time Stop Time Status Last Admin Sodium Chloride 1,000 ml @ 100 mls/hr Q10H IV 03/24/17 18:00 03/26/17 09:07 (NS Flush) 2 ml UNSCH PRN IV FLUSH 03/24/17 17:15 (NS Flush) 2 ml BID IV FLUSH 03/24/17 21:00 03/25/17 19:55 (Tylenol) 650 mg Q4H PRN PO 03/24/17 17:15 03/26/17 05:16 (Zofran Inj) 4 mg Q6H PRN IVP 03/24/17 17:15 03/24/17 23:17 (D50w (Vial) Inj) 50 ml UNSCH PRN IV PUSH 03/24/17 17:45 (Glucagon Inj) 1 mg UNSCH PRN OTHER 03/24/17 17:45 (NovoLOG SUPPLEMENTAL SCALE) 1 ACHS SLIDING SCALE SQ 03/24/17 21:00 03/26/17 12:55 (Norvasc) 5 mg DAILY PO 03/25/17 09:00 03/26/17 09:06 (Vitamin D3) 1,000 units DAILY PO 03/25/17 09:00 03/26/17 09:06 (Cozaar) 50 mg DAILY PO 03/25/17 09:00 03/26/17 09:06 (Lopressor) 50 mg BID PO 03/24/17 21:00 03/26/17 09:06 (Protonix) 40 mg DAILY PO 03/25/17 09:00 03/26/17 09:06 (Theragran) 1 tab DAILY PO 03/25/17 09:00 03/26/17 09:06 Ceftriaxone Sodium 1000 mg/ Sodium Chloride 100 ml @ 200 mls/hr Q24H IV 03/25/17 16:00 03/25/17 17:12 (Flomax) 0.8 mg HS PO 03/24/17 21:00 03/25/17 19:54 Patient Own Medication PT OWN MED: ASTAG... BID PO 03/25/17 09:00 Future Hold (Mag-Ox) 1,000 mg Q8HR PO 03/24/17 22:00 03/26/17 05:16 (Urecholine) 25 mg Q12HR PO 03/24/17 21:00 03/26/17 09:06 (Deltasone) 5 mg DAILY PO 03/25/17 09:00 03/26/17 09:06 Patient Own Medication PT OWN MED: TACROLI... Q12H PO 03/25/17 10:00 03/26/17 10:01 (Levemir Inj) 20 units DAILY SQ 03/26/17 09:45 03/26/17 11:16 (NovoLOG INJ) 3 units TIDAC SQ 03/26/17 12:00 03/26/17 12:55 Assessment and Plan Assessment and Plan 56 y.o. male with ARF and pyelonephritis in transplant kidney with ONTIVEROS Continue ABx Maintain nath catheter Leg bag instruction Will need outpt TURP vs Urolift to treat BPH Dereck Dao DO Mar 26, 2017 13:00
--- NOTE | 2017-03-26 15:21 | PD.ID.CON ---
History of Present Illness Service ID Consult Requested By Dr. Rogers Reason for Consult Evaluation and Mment of fever in a renal transplant patient immune compromised. Primary Care Physician Unknown Diagnoses: History of Present Illness is a 56yo male with PMHx of cadaveric kidney transplant in 2012 who is on immunosuppressives. Per d/w is hand outside cutter patient had infection post op and developed hydronephrosis. 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 Patient was doing well until day of admission when he developed hematuria that was significant enough to bring him to ED. He reports he self caths himself and cleans and microwaves the catheters prior to each use. He denies h/o recurrent UTIs. He reports BPH and is on meds but does not think they are working for him. His PMHx is also significant for DM on insulin pump, HTN and vitiligo. He denies any associated fever, chills, nausea, vomiting or abdominal pain. He denies any increase or decrease in urinary output. He denies any dysuria, hesitancy, urgency or frequency. He denies any sensation of incomplete emptying. Patient endorses self-catheterization morning and night with 250-400cc of urine output in addition to voiding on his own throughout the day. Patient follows with Dr. Medellin of nephrology and Dr. Dao of urology. In the ED, she was noted to have acute kidney failure with a creatinine level of 2.61. He has elevated glucose level 572. UA was highly suggestive of urinary tract infection. CT of the abdomen and pelvis was obtained showing moderate to severe right lower quadrant transplant kidney hydronephrosis and hydroureter and urinary bladder abnormality with thick wall, trabeculated appearance of numerous diverticuli. Blood cultures are negative so far. Urine cultures are positive for Grp B Strep. ID was consulted for evaluation and Mment of fever in a renal transplant pt immune compromised. Review of Systems ROS Limitations: Poor Historian Past Family Social History Allergies: Coded Allergies: No Known Allergies (Verified Adverse Reaction, Unknown, 03/24/17) Past Medical History s/p kidney transplant 2012 on immunosuppressives HTN CKD DM, s/p implantation of insulin pump GERD BPH with obstruction, self caths 2x/day Past Surgical History Right kidney transplant Tonsillectomy Uvulectomy Reported Medications Reported Meds & Active Scripts Active Bethanechol 25 Mg Tab 25 Mg PO Q8HR Reported Prednisone 5 Mg Tab 5 Mg PO DAILY Multi Vitamin Mens (Multiple Vitamin) 1 Tab Tab 1 Cap PO DAILY Vitamin D3 (Cholecalciferol) 1,000 Unit Cap 1,000 Units PO DAILY Amlodipine (Amlodipine Besylate) 5 Mg Tab 5 Mg PO DAILY Astagraf Xl (Tacrolimus) 1 Mg Cap 1 Mg PO BID Astagraf Xl (Tacrolimus) 5 Mg Cap 5 Mg PO BID Phospha 250 Neutral (Pot Phos (Monobasic)-Sod Phos (di/monobasic)) 155-852-130 Mg Tab 250 Tab PO DAILY Pantoprazole (Pantoprazole Sodium) 40 Mg Tab 40 Mg PO DAILY Novolog Inj (Insulin Aspart) 100 Unit/Ml Inj 100 IMPLANT DIRECTED Magnesium 400 Mg Tab 1,000 Mg PO TID Losartan (Losartan Potassium) 50 Mg Tab 50 Mg PO BID Lasix (Furosemide) 40 Mg Tab 40 Mg PO DAILY Cranberry Plus Vitamin C (Cranberry-Vitamin C-Vitamin E) 4,200-20-3 Mg-Mg-Unit Cap 4,200 Cap PO DAILY Tums (Calcium Carbonate (Antacid)) 500 Mg Chew 500 Mg CHEW PRN Flomax (Tamsulosin HCl) 0.4 Mg Cap 2 Cap PO HS Patient take one in the morning and one at night Viagra (Sildenafil Citrate) 100 Mg Tab 100 Mg PO DAILY PRN Metoprolol Tartrate 50 Mg Tab 50 Mg PO BID Active Ordered Medications Current Medications Medications (Trade) Dose Ordered Sig/Eufemia Route Start Time Stop Time Status Last Admin Sodium Chloride 1,000 ml @ 100 mls/hr Q10H IV 03/24/17 18:00 03/26/17 09:07 (NS Flush) 2 ml UNSCH PRN IV FLUSH 03/24/17 17:15 (NS Flush) 2 ml BID IV FLUSH 03/24/17 21:00 03/25/17 19:55 (Tylenol) 650 mg Q4H PRN PO 03/24/17 17:15 03/26/17 05:16 (Zofran Inj) 4 mg Q6H PRN IVP 03/24/17 17:15 03/24/17 23:17 (D50w (Vial) Inj) 50 ml UNSCH PRN IV PUSH 03/24/17 17:45 (Glucagon Inj) 1 mg UNSCH PRN OTHER 03/24/17 17:45 (NovoLOG SUPPLEMENTAL SCALE) 1 ACHS SLIDING SCALE SQ 03/24/17 21:00 03/26/17 12:55 (Norvasc) 5 mg DAILY PO 03/25/17 09:00 03/26/17 09:06 (Vitamin D3) 1,000 units DAILY PO 03/25/17 09:00 03/26/17 09:06 (Cozaar) 50 mg DAILY PO 03/25/17 09:00 03/26/17 09:06 (Lopressor) 50 mg BID PO 03/24/17 21:00 03/26/17 09:06 (Protonix) 40 mg DAILY PO 03/25/17 09:00 03/26/17 09:06 (Theragran) 1 tab DAILY PO 03/25/17 09:00 03/26/17 09:06 (Flomax) 0.8 mg HS PO 03/24/17 21:00 03/25/17 19:54 Patient Own Medication PT OWN MED: ASTAG... BID PO 03/25/17 09:00 Future Hold (Mag-Ox) 1,000 mg Q8HR PO 03/24/17 22:00 03/26/17 13:31 (Urecholine) 25 mg Q12HR PO 03/24/17 21:00 03/26/17 09:06 (Deltasone) 5 mg DAILY PO 03/25/17 09:00 03/26/17 09:06 Patient Own Medication PT OWN MED: TACROLI... Q12H PO 03/25/17 10:00 03/26/17 10:01 (Levemir Inj) 20 units DAILY SQ 03/26/17 09:45 03/26/17 11:16 (NovoLOG INJ) 3 units TIDAC SQ 03/26/17 12:00 03/26/17 12:55 (Keflex) 500 mg Q8HR PO 03/26/17 15:30 Family History DM Prostate cancer Social History Patient denies any tobacco use, EtOH use or illicit drug use. Patient is and lives with his . He has grown up children. 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 Physical Exam Vital Signs Vital Signs Date Time Temp Pulse Resp B/P (MAP) Pulse Ox O2 Delivery O2 Flow Rate FiO2 03/26/17 12:23 98.3 80 18 116/63 (80) 96 03/26/17 08:03 98.6 82 18 149/85 (106) 95 03/26/17 04:00 Room Air 03/26/17 04:00 99.0 75 16 128/76 (93) 96 03/26/17 00:00 Room Air 03/26/17 00:00 99.5 74 16 111/64 (80) 95 03/25/17 20:00 101.3 94 16 131/69 (89) 96 03/25/17 20:00 Room Air 03/25/17 16:00 99.9 77 17 128/72 (90) 95 Physical Exam GENERAL: This is a well-nourished, well-developed patient, in no apparent distress. SKIN: No rashes, ecchymoses or lesions. Cool and dry. HEAD: Atraumatic. Normocephalic. No temporal or scalp tenderness. EYES: Pupils equal round and reactive. Extraocular motions intact. No scleral icterus. No injection or drainage. ENT: Nose without bleeding, purulent drainage or septal hematoma. Throat without erythema, tonsillar hypertrophy or exudate. Uvula midline. Airway patent. NECK: Trachea midline. Supple, nontender, no meningeal signs. CARDIOVASCULAR: Regular rate and rhythm without murmurs, gallops, or rubs. RESPIRATORY: Clear to auscultation. Breath sounds equal bilaterally. No wheezes , rales, or rhonchi. GASTROINTESTINAL: Abdomen soft, non-tender, nondistended. MUSCULOSKELETAL: Extremities without clubbing, cyanosis, or edema. No joint tenderness, effusion, or edema noted. No calf tenderness. Negative Homans sign bilaterally. NEUROLOGICAL: Awake and alert. Non focal. : nath in place with small amount of urinary sediment in the bag. Psych cooperative IV line sites with no e.o infection. Laboratory Laboratory Tests Test 03/26/17 05:35 White Blood Count 8.1 Red Blood Count 3.59 Hemoglobin 10.4 Hematocrit 31.6 Mean Corpuscular Volume 88.0 Mean Corpuscular Hemoglobin 28.9 Mean Corpuscular Hemoglobin Concent 32.9 Red Cell Distribution Width 15.3 Platelet Count 178 Mean Platelet Volume 7.5 Neutrophils (%) (Auto) 81.1 Lymphocytes (%) (Auto) 7.8 Monocytes (%) (Auto) 10.4 Eosinophils (%) (Auto) 0.5 Basophils (%) (Auto) 0.2 Neutrophils # (Auto) 6.6 Lymphocytes # (Auto) 0.6 Monocytes # (Auto) 0.8 Eosinophils # (Auto) 0.0 Basophils # (Auto) 0.0 CBC Comment DIFF FINAL Differential Comment Blood Urea Nitrogen 23 Creatinine 1.87 Random Glucose 227 Total Protein 6.9 Albumin 2.1 Calcium Level 8.2 Phosphorus Level 2.6 Magnesium Level 1.4 Alkaline Phosphatase 67 Aspartate Amino Transf (AST/SGOT) 21 Alanine Aminotransferase (ALT/SGPT) 31 Total Bilirubin 0.3 Sodium Level 135 Potassium Level 3.8 Chloride Level 102 Carbon Dioxide Level 25.5 Anion Gap 8 Estimat Glomerular Filtration Rate 45 Tacrolimus (Prograf) Level 7.3 Date/Time Source Procedure Growth Status 03/25/17 00:49 Blood Peripheral Aerobic Blood Culture - Preliminary NO GROWTH IN 1 DAY Resulted 03/25/17 00:49 Blood Peripheral Anaerobic Blood Culture - Preliminary NO GROWTH IN 1 DAY Resulted 03/24/17 13:40 Urine Random Urine Urine Culture - Final Group B Beta Strep Complete Result Diagram: 03/26/17 0535 03/26/17 0535 Imaging Last Impressions Abdomen/Pelvis CT 03/24/17 0000 Signed Impressions: Service Date/Time: Sunday, March 24, 2017 14:58 - CONCLUSION: 1. There is moderate to severe right lower quadrant transplant kidney hydronephrosis and hydroureter. 2. Urinary bladder is abnormal with a thick wall, trabeculated appearance and numerous diverticuli. 3. Left basilar atelectasis. Mykel Parry MD Assessment and Plan Assessment and Plan Fever in a kidney transplant pt Grp B Strep possible UTI/pyelonephritis with complicated with hydronephrosis. H/ o self caths BK virus positive in past. Kidney transplant in 2012 on immune suppressants. DM on insulin pump. Recs: DC ceftriaxone IV Start Keflex oral. Follow cultures Follow clinically and temp curves overnight If no fevers overnight ok to DC on 10 day course of Keflex. d/w pt and . BK virus can be followed as outpt by nephrology to assess immune suppressant dosing. Manda Lopez MD 20, 2017 15:21
[2017-03-26] MEDS: CEPHALEXIN MONOHYDRATE 500 MG CAP PO SCH ×2 (15:47→21:32)
--- NOTE | 2017-03-26 16:31 | HHI.NPPN ---
Subjective History of Present Illness patient is doing well had UTI hematuria cleared doing self catheterization twice a day due to neurogenic bladder Objective Data Data Vital Signs Date Time Temp Pulse Resp B/P (MAP) Pulse Ox O2 Delivery O2 Flow Rate FiO2 03/26/17 12:23 98.3 80 18 116/63 (80) 96 03/26/17 08:03 98.6 82 18 149/85 (106) 95 03/26/17 04:00 Room Air 03/26/17 04:00 99.0 75 16 128/76 (93) 96 03/26/17 00:00 Room Air 03/26/17 00:00 99.5 74 16 111/64 (80) 95 03/25/17 20:00 101.3 94 16 131/69 (89) 96 03/25/17 20:00 Room Air -: 03/26/17 0535 03/26/17 0535 Physical Exam General Appearance: Well Developed, Well Nourished Neck Neck Exam: Neck Supple Pulmonary Resp Exam: Clear Bilaterally, Breath Sounds Equal Cardiology CV Exam: Regular, Normal Sinus Rhythm Gastrointestinal/Abdomen GI Exam: Soft, Non-Tender, Bowel Sounds Present Extremeties Extremities Exam: No Edema Assessment/Plan Problem List: (1) Status post kidney transplant ICD Codes: Z94.0 - Status post kidney transplant Status: Acute Plan: Creatinine has improved 1.8 he has UTI treated possibly due to catheter related discussed BK virus was negative with change in his immunosuppression ( stopped Mycophenolate) and can be followed as out patient Apr 12 [facility] on Prograf 6 mg q 12 Prednisone 5 mg d (2) Diabetes ICD Codes: E11.9 - Type 2 diabetes mellitus without complications Status: Acute (3) Hypertension ICD Codes: I10 - Essential (primary) hypertension Status: Acute (4) UTI (lower urinary tract infection) ICD Codes: N39.0 - Lower urinary tract infectious disease Status: Acute Plan treated Yahaira Medellin MD Mar 26, 2017 16:31
--- NOTE | 2017-03-26 16:33 | HHI.NPPN ---
Subjective History of Present Illness Patient Had Kidney Transplant 2012 at [place] developed hydronephrosis UTI, stents and finally did better but had neurogenic bladder self catheterize twice a day and noticed Hematuria he came in culture B strep treated and urine is clear Objective Data Data Vital Signs Date Time Temp Pulse Resp B/P (MAP) Pulse Ox O2 Delivery O2 Flow Rate FiO2 03/26/17 12:23 98.3 80 18 116/63 (80) 96 03/26/17 08:03 98.6 82 18 149/85 (106) 95 03/26/17 04:00 Room Air 03/26/17 04:00 99.0 75 16 128/76 (93) 96 03/26/17 00:00 Room Air 03/26/17 00:00 99.5 74 16 111/64 (80) 95 03/25/17 20:00 101.3 94 16 131/69 (89) 96 03/25/17 20:00 Room Air -: 03/26/17 0535 03/26/17 0535 Physical Exam General Appearance: Well Developed, Well Nourished Neck Neck Exam: Neck Supple Pulmonary Resp Exam: Clear Bilaterally, Breath Sounds Equal Cardiology CV Exam: Regular, Normal Sinus Rhythm Gastrointestinal/Abdomen GI Exam: Soft, Non-Tender, Bowel Sounds Present Extremeties Extremities Exam: No Edema Assessment/Plan Problem List: (1) Status post kidney transplant ICD Codes: Z94.0 - Status post kidney transplant Status: Acute Plan: Creatinine has improved 1.8 he has UTI treated possibly due to catheter related discussed BK virus was negative with change in his immunosuppression ( stopped Mycophenolate) and can be followed as out patient Apr 12 [facility] clinic on Prograf 6 mg q 12 Prednisone 5 mg d (2) Diabetes ICD Codes: E11.9 - Type 2 diabetes mellitus without complications Status: Acute (3) Hypertension ICD Codes: I10 - Essential (primary) hypertension Status: Acute (4) UTI (lower urinary tract infection) ICD Codes: N39.0 - Lower urinary tract infectious disease Status: Acute Plan treated Yahaira Medellin MD Mar 26, 2017 16:33
[2017-03-26] MEDS: TAMSULOSIN HCL 0.4 MG CAP PO SCH (21:00)
[2017-03-27 03:37] VITALS: BP 144/86; PULSE 76; RESP 18; TEMP 97.8; O2SAT 95
[2017-03-27] MEDS: MAGNESIUM OXIDE 400 MG TAB PO SCH (06:11)
[2017-03-27] MEDS: SODIUM CHLOR 0.9% 1000 ML INJ 1,000 ML IV SCH (06:11)
[2017-03-27] MEDS: CEPHALEXIN MONOHYDRATE 500 MG CAP PO SCH (06:11)
[2017-03-27 07:00] LABS: HEMATOCRIT 30.9 % (39.0-51.0); MEAN CELL VOLUME 88.2 FL (80.0-100.0); MEAN CORPUSCULAR HEMOGLOBIN 29.8 PG (27.0-34.0); MEAN CORPUSCULAR HGB CONC 33.7 % (32.0-36.0); PLATELET COUNT 171 TH/MM3 (150-450); RED BLOOD COUNT 3.51 MIL/MM3 (4.50-5.90); RED CELL DISTRIBUTION WIDTH 15.3 % (11.6-17.2); REVIEW FLAG FINAL; WHITE BLOOD COUNT 8.4 TH/MM3 (4.0-11.0)
[2017-03-27 07:44] LABS: BICARBONATE 24.2 MEQ/L (21.0-32.0); MAGNESIUM 1.5 MG/DL (1.5-2.5)
[2017-03-27 07:45] LABS: POTASSIUM 4.1 MEQ/L (3.5-5.1)
[2017-03-27 08:00] VITALS: BP 118/59; PULSE 84; RESP 20; TEMP 98.3; O2SAT 96
[2017-03-27] MEDS ORDERED: INSULIN DETEMIR 100 UNITS/ML VIAL SQ SCH (09:00)
[2017-03-27] MEDS ORDERED: CEPH500C PO (09:06)
--- NOTE | 2017-03-27 09:07 | HHI.DCPOC ---
Discharge Care Plan Diagnosis: (1) Status post kidney transplant (2) Hydronephrosis of kidney transplant (3) BPH with urinary obstruction (4) UTI (lower urinary tract infection) (5) Acute renal failure (6) Diabetes Goals to Promote Your Health * To prevent worsening of your condition and complications * To maintain your health at the optimal level Directions to Meet Your Goals Take your medications as prescribed Follow your dietary instruction Follow activity as directed Keep your appointments as scheduled Take your immunizations and boosters as scheduled If your symptoms worsen call your PCP, if no PCP go to Urgent Care Center or Emergency Room Smoking is Dangerous to Your Health. Avoid second hand smoke Call the 24-hour hour crisis hotline for domestic abuse at Yoel Rogers DO Mar 27, 2017 09:07
[2017-03-27] MEDS: amLODIPine BESYLATE 5 MG TAB PO SCH (09:18)
[2017-03-27] MEDS: BETHANECHOL CHL 25 MG TAB PO SCH (09:19)
[2017-03-27] MEDS: SODIUM CHLORIDE 0.9% FLUSH 10 ML FLUSH IV FLUSH SCH (09:19)
[2017-03-27] MEDS: LOSARTAN 50 MG TAB PO SCH (09:19)
[2017-03-27] MEDS: MULTIVITAMIN TAB PO SCH (09:19)
[2017-03-27] MEDS: CHOLECALCIFEROL (VIT D3) 1000 UNIT TAB PO SCH (09:19)
[2017-03-27] MEDS: METOPROLOL TARTRATE 50 MG TAB PO SCH (09:19)
[2017-03-27] MEDS: PANTOPRAZOLE SOD 40 MG DELAYED RELEASE TAB PO SCH (09:19)
[2017-03-27] MEDS: predniSONE 5 MG TAB PO SCH (09:20)
[2017-03-27] MEDS: TACROLIMUS 1 MG PO SCH (09:20)
[2017-03-27] MEDS: INSULIN ASPART SUPPLEMENTAL SCALE SQ SCH (09:21)
--- NOTE | 2017-03-27 09:21 | HHI.DS ---
Discharge Summary Admission Date Mar 24, 2017 at 17:27 Discharge Date: Mar 27, 2017 Admitting Diagnosis Hematuria, hydronephrosis (1) Status post kidney transplant ICD Code: Z94.0 - Status post kidney transplant Status: Acute (2) Hydronephrosis of kidney transplant ICD Code: T86.19 - Hydronephrosis of kidney transplant; N13.30 - Unspecified hydronephrosis Diagnosis: Principal Status: Acute (3) BPH with urinary obstruction ICD Code: N40.1 - Benign prostatic hyperplasia with urinary obstruction; N13.8 - Other obstructive and reflux uropathy Status: Acute (4) UTI (lower urinary tract infection) ICD Code: N39.0 - Lower urinary tract infectious disease Diagnosis: Principal Status: Acute (5) Acute renal failure ICD Code: N17.9 - Acute renal failure Diagnosis: Principal Status: Acute Procedures None Brief History - From Admission This is a 56yo male with past medical history significant for previous kidney transplant on immunosuppressives, hypertension, diabetes status post insulin pump implantation, BPH with twice-daily self catheterizations and CKD who presents to [facility] with complaints of hematuria 1 day. Patient states he was at work around 11:30 this morning when he noticed significant amount of gross hematuria with voiding. He denies any clot formation. He denies any associated fever, chills, nausea, vomiting or abdominal pain. He denies any increase or decrease in urinary output. He denies any dysuria, hesitancy, urgency or frequency. He denies any sensation of incomplete emptying. Patient endorses self-catheterization morning and night with 250-400cc of urine output in addition to voiding on his own throughout the day. Patient follows with Dr. Medellin of nephrology and Dr. Dao of urology. Patient has a insulin pump and states that his blood sugars run between 179 and 200 but admits that he has not checked his blood sugar in quite some time. He denies any increase in thirst, polyuria or polydipsia. Patient states he drinks about a liter of water a day. He denies any diarrhea or constipation. In the ED, she was noted to have acute kidney failure with a creatinine level of 2.61. He has elevated glucose level 572. UA was highly suggestive of urinary tract infection. CT of the abdomen and pelvis was obtained showing moderate to severe right lower quadrant transplant kidney hydronephrosis and hydroureter and urinary bladder abnormality with thick wall, trabeculated appearance of numerous diverticuli. CBC/BMP: 03/27/17 0620 03/27/17 0620 Significant Findings Laboratory Tests Test 03/24/17 13:40 03/25/17 00:43 03/25/17 07:40 03/26/17 05:35 Red Blood Count 3.64 MIL/MM3 (4.50-5.90) 4.10 MIL/MM3 (4.50-5.90) 3.59 MIL/MM3 (4.50-5.90) Hemoglobin 10.5 GM/DL (13.0-17.0) 12.1 GM/DL (13.0-17.0) 10.4 GM/DL (13.0-17.0) Hematocrit 32.6 % (39.0-51.0) 36.3 % (39.0-51.0) 31.6 % (39.0-51.0) Neutrophils (%) (Auto) 82.6 % (16.0-70.0) 82.0 % (16.0-70.0) 81.1 % (16.0-70.0) Lymphocytes (%) (Auto) 6.0 % (9.0-44.0) 5.9 % (9.0-44.0) 7.8 % (9.0-44.0) Monocytes (%) (Auto) 10.5 % (0.0-8.0) 11.3 % (0.0-8.0) 10.4 % (0.0-8.0) Lymphocytes # (Auto) 0.4 TH/MM3 (1.0-4.8) 0.5 TH/MM3 (1.0-4.8) 0.6 TH/MM3 (1.0-4.8) Urine Turbidity CLOUDY (CLEAR) Urine Protein 30 mg/dL (NEG-TRACE) Urine Glucose (UA) 1000 mg/dL (NEG) Urine Occult Blood LARGE (NEG) Urine Leukocyte Esterase LARGE (NEG) Urine RBC 4-9 /hpf (0-3) Urine WBC Clumps FEW (NONE) Urine Bacteria MOD /hpf (NONE) Urine Yeast with Hyphae MOD (NONE) Urine Yeast (Budding) FEW (NONE) Blood Urea Nitrogen 36 MG/DL (7-18) 28 MG/DL (7-18) 23 MG/DL (7-18) Creatinine 2.61 MG/DL (0.60-1.30) 2.18 MG/DL (0.60-1.30) 1.87 MG/DL (0.60-1.30) Random Glucose 572 MG/DL (74-106) 140 MG/DL (74-106) 227 MG/DL (74-106) Albumin 2.5 GM/DL (3.4-5.0) 2.5 GM/DL (3.4-5.0) 2.1 GM/DL (3.4-5.0) Sodium Level 133 MEQ/L (136-145) 134 MEQ/L (136-145) 135 MEQ/L (136-145) Estimat Glomerular Filtration Rate 31 ML/MIN (>89) 38 ML/MIN (>89) 45 ML/MIN (>89) Hemoglobin A1c 14.6 % (4.3-6.0) Monocytes # (Auto) 1.0 TH/MM3 (0-0.9) Total Protein 8.4 GM/DL (6.4-8.2) Calcium Level 8.2 MG/DL (8.5-10.1) Magnesium Level 1.4 MG/DL (1.5-2.5) Test 03/26/17 16:00 03/27/17 06:20 Red Blood Count 3.51 MIL/MM3 (4.50-5.90) Hemoglobin 10.4 GM/DL (13.0-17.0) Hematocrit 30.9 % (39.0-51.0) Blood Urea Nitrogen 21 MG/DL (7-18) Creatinine 1.63 MG/DL (0.60-1.30) Random Glucose 234 MG/DL (74-106) Calcium Level 8.4 MG/DL (8.5-10.1) Estimat Glomerular Filtration Rate 53 ML/MIN (>89) Imaging Last Impressions Abdomen/Pelvis CT 03/24/17 0000 Signed Impressions: Service Date/Time: Friday, March 24, 2017 14:58 - CONCLUSION: 1. There is moderate to severe right lower quadrant transplant kidney hydronephrosis and hydroureter. 2. Urinary bladder is abnormal with a thick wall, trabeculated appearance and numerous diverticuli. 3. Left basilar atelectasis. Mykel Parry MD PE at Discharge GENERAL: NAD, A&Ox3 HEAD: Normocephalic. NECK: Supple, trachea midline. No lymphadenopathy. EYES: No scleral icterus. No injection or drainage. CARDIOVASCULAR: Regular rate and rhythm without murmurs, gallops, or rubs. RESPIRATORY: Breath sounds equal bilaterally. No accessory muscle use. GASTROINTESTINAL: Abdomen soft, non-tender, nondistended. : Simon in place. MUSCULOSKELETAL: No cyanosis, or edema. SKIN: Warm and dry. Vitiligo noted. NEURO: No focal neurological deficitis. PSYCH: Mood and affect appropriate. Pt update on day of discharge The patient was feeling well and looking forward to going home. He had no acute complaints. He said he will resume his insulin pump at home. Discussed with nursing. Hospital Course UTI/ Fevers UA positive for large occult blood, large leukocyte esterase, few white blood cells and moderate bacteria. Patient was started on IV ceftriaxone in the ED, which was continued. Urine culture grew group B beta strep. The pt was asymptomatic except for gross hematuria. He continued to spike fevers so ID was consulted. Antibiotics were changed to PO Keflex. He remained afebrile. He will complete a 10 day course of PO Keflex. Hydronephrosis/ hydroureter/ Hematuria/ BPH CT abd/pelvis showed moderate to severe right lower quadrant transplant kidney hydronephrosis and hydroureter; urinary bladder abnormality with thick wall, trabeculated appearance and numerous diverticuli. The pt normally self caths 2x/ day at home. Urology was consulted. He was place on a Simon catheter. He received IVFs. His CBC was stable. Hematuria cleared up. He will be discharged with a leg-bag and will follow up with urology as an outpt. He will continue his home tamsulosin regimen. FITO on CKD Nephrology was consulted. We held his home Lasix. He received IVF hydration. He will follow up with nephrology as an outpt. Hx of kidney transplant 2012 on immunosuppressives He was continued on tacrolimus and prednisone. He will follow up with nephrology as an outpt. DM with hyperglycemia Poorly controlled. HgbA1c 14.6%. He was started on Levemir and aspart with meals. He was placed on an insulin sliding scale. The loom control chain builder was consulted. He will resume his home insulin pump upon discharge. Pt Condition on Discharge: Stable Discharge Disposition: Discharge Home Discharge Time: > 30 minutes Discharge Instructions DIET: Follow Instructions for: Diabetic Diet Activities you can perform: Weight Bearing as Drake Follow up Referrals: Appointment for Follow Up @ [facility] MEDELLIN Appointment for Follow Up @ [facility] Nephrology - [address] Medellin PCP Follow-up - 1 Week Urology - 1 Week with Terrie Dao DO New Medications: Cephalexin (Cephalexin) 500 Mg Cap 500 MG PO Q8HR for Infection for 10 Days, CAP Continued Medications: Amlodipine (Amlodipine) 5 Mg Tab 5 MG PO DAILY for Blood Pressure Management, #30 TAB 0 Refills Bethanechol (Bethanechol) 25 Mg Tab 25 MG PO Q8HR for Urinary Symptom Managemen, #30 TAB 0 Refills Calcium Carbonate (Antacid) (Tums) 500 Mg Chew 500 MG CHEW PRN for HEARTBURN, TAB 0 Refills Cholecalciferol (Vitamin D3) 1,000 Unit Cap 1000 UNITS PO DAILY for Nutritional Supplement, #1 BOTTLE 0 Refills Cranberry-Vitamin C-Vitamin E (Cranberry Plus Vitamin C) 4,200-20-3 Mg-Mg-Unit Cap 4200 CAP PO DAILY Insulin Aspart Inj (Novolog Inj) 100 Unit/Ml Inj 100 IMPLANT DIRECTED Losartan (Losartan) 50 Mg Tab 50 MG PO BID for Blood Pressure Management, #30 TAB 0 Refills Magnesium (Magnesium) 400 Mg Tab 1000 MG PO TID for Nutritional Supplement, TAB 0 Refills Metoprolol Tartrate (Metoprolol Tartrate) 50 Mg Tab 50 MG PO BID for Blood Pressure Management, TAB 0 Refills Multiple Vitamin (Multi Vitamin Mens) 1 Tab Tab 1 CAP PO DAILY Pantoprazole (Pantoprazole) 40 Mg Tab 40 MG PO DAILY for Reflux, #30 TAB 0 Refills Pot Phos (Monobasic)-Sod Phos (di/monobasic) (Phospha 250 Neutral) 155-852-130 Mg Tab 250 TAB PO DAILY Prednisone (Prednisone) 5 Mg Tab 5 MG PO DAILY for Immunosuppression, TAB 0 Refills Sildenafil (Viagra) 100 Mg Tab 100 MG PO DAILY PRN for ERECTILE DYSFUNCTION, TAB 0 Refills Tacrolimus ER (Astagraf Xl) 5 Mg Cap 5 MG PO BID for Prevent Transplant Reject, #30 CAP 0 Refills Tacrolimus ER (Astagraf Xl) 1 Mg Cap 1 MG PO BID for Prevent Transplant Reject, #30 CAP 0 Refills Tamsulosin (Flomax) 0.4 Mg Cap 2 CAP PO HS for Manage Prostate Problems, #30 CAP 0 Refills Patient take one in the morning and one at night Discontinued Medications: Furosemide (Lasix) 40 Mg Tab 40 MG PO DAILY, #30 TAB 0 Refills Yoel Rogers DO Mar 27, 2017 09:21
--- NOTE | 2017-03-27 10:22 | HHI.PR ---
Subjective Patient symptoms today Pt seen and examined. Feels well. Ready for discharge. Objective Vital Signs Vital Signs Date Time Temp Pulse Resp B/P (MAP) Pulse Ox O2 Delivery O2 Flow Rate FiO2 03/27/17 08:00 98.3 84 20 118/59 (78) 96 03/27/17 03:37 97.8 76 18 144/86 (105) 95 03/26/17 23:58 97.5 78 18 138/78 (98) 94 03/26/17 20:55 97.7 87 18 146/78 (100) 99 03/26/17 19:30 Room Air 03/26/17 16:03 98.3 87 19 133/68 (89) 96 03/26/17 12:23 98.3 80 18 116/63 (80) 96 Intake & Output 03/27/17 03/27/17 07:00 19:00 Intake Total 2720 ml Output Total 3200 ml Balance -480 ml Intake Oral 720 ml IV Total 2000 ml Output Urine Total 3200 ml # Bowel Movements 0 Result Diagram: 03/27/1761903/27/17619 Objective Remarks Abd:soft,nt,nd Nath clear with some sediment 03/27 Abd:soft,nt,nd Nath with clear urine Medications and IVs Current Medications Medications (Trade) Dose Ordered Sig/Eufemia Route Start Time Stop Time Status Last Admin Sodium Chloride 1,000 ml @ 100 mls/hr Q10H IV 03/24/17 18:00 03/27/17 06:11 (NS Flush) 2 ml UNSCH PRN IV FLUSH 03/24/17 17:15 (NS Flush) 2 ml BID IV FLUSH 03/24/17 21:00 03/27/17 09:19 (Tylenol) 650 mg Q4H PRN PO 03/24/17 17:15 03/26/17 05:16 (Zofran Inj) 4 mg Q6H PRN IVP 03/24/17 17:15 03/24/17 23:17 (D50w (Vial) Inj) 50 ml UNSCH PRN IV PUSH 03/24/17 17:45 (Glucagon Inj) 1 mg UNSCH PRN OTHER 03/24/17 17:45 (NovoLOG SUPPLEMENTAL SCALE) 1 ACHS SLIDING SCALE SQ 03/24/17 21:00 03/27/17 09:21 (Norvasc) 5 mg DAILY PO 03/25/17 09:00 03/27/17 09:18 (Vitamin D3) 1,000 units DAILY PO 03/25/17 09:00 03/27/17 09:19 (Cozaar) 50 mg DAILY PO 03/25/17 09:00 03/27/17 09:19 (Lopressor) 50 mg BID PO 03/24/17 21:00 03/27/17 09:19 (Protonix) 40 mg DAILY PO 03/25/17 09:00 03/27/17 09:19 (Theragran) 1 tab DAILY PO 03/25/17 09:00 03/27/17 09:19 (Flomax) 0.8 mg HS PO 03/24/17 21:00 03/26/17 21:00 Patient Own Medication PT OWN MED: ASTAG... BID PO 03/25/17 09:00 Future Hold (Mag-Ox) 1,000 mg Q8HR PO 03/24/17 22:00 03/27/17 06:11 (Urecholine) 25 mg Q12HR PO 03/24/17 21:00 03/27/17 09:19 (Deltasone) 5 mg DAILY PO 03/25/17 09:00 03/27/17 09:20 Patient Own Medication PT OWN MED: TACROLI... Q12H PO 03/25/17 10:00 03/27/17 09:20 (Keflex) 500 mg Q8HR PO 03/26/17 15:30 03/27/17 06:11 (Levemir Inj) 30 units DAILY SQ 03/27/17 09:00 03/27/17 09:21 (NovoLOG INJ) 5 units TIDAC SQ 03/27/17 12:00 Assessment and Plan Assessment and Plan 56 y.o. 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
[2017-03-27 10:23] VITALS: O2SAT 96
[2017-03-27] MEDS ORDERED: INSULIN ASPART 1,000 UNITS/10 ML VIAL SQ SCH (12:00)
== END 2017-03-27 13:01 | disposition home or self-care (01) ==
LOC: NEPD 13:03 → NEDA 17:27 → N04A 18:19
PROVIDERS: ADMIT Hospitalist; ATTEND Hospitalist
DX: N13.6 Pyonephrosis (principal); N40.1 Benign prostatic hyperplasia with lower urinary tract symptoms; N13.8 Other obstructive and reflux uropathy; R31.0 Gross hematuria; N17.9 Acute kidney failure, unspecified; I12.9 Hypertensive chronic kidney disease with stage 1 through stage 4 chronic kidney disease, or unspecified chronic kidney disease; N18.9 Chronic kidney disease, unspecified; E10.22 Type 1 diabetes mellitus with diabetic chronic kidney disease; E10.65 Type 1 diabetes mellitus with hyperglycemia; N31.9 Neuromuscular dysfunction of bladder, unspecified; N32.3 Diverticulum of bladder; K21.9 Gastro-esophageal reflux disease without esophagitis; L80 Vitiligo; R60.0 Localized edema; M19.072 Primary osteoarthritis, left ankle and foot; Z99.2 Dependence on renal dialysis; Z96.41 Presence of insulin pump (external) (internal); Z79.899 Other long term (current) drug therapy; Z79.4 Long term (current) use of insulin
CPT/HCPCS: 51702; 74176; 76937; 80048; 80053; 80197; 81001; 82948; 83036; 83605; 83735; 84100; 85025; 85027; 87040; 87086; 87799; 96361; 96365; 96372; 96375; 99285; G0378; J0696; J1815; J2405; J7030; J7040; J7507; J7512

== ENCOUNTER 2017-04-01 07:33 | Emergency (ER) | payer BC ==
[~2017-04-01] VITALS: Ht 182.9 cm; Wt 100.0 kg
[~2017-04-01 07:33] MED LIST changes: +CEPH500C PO; -FURO1TAB60 PO; -MILL5TAB PO; +PRED5TAB PO
[2017-04-01 07:43] VITALS: BP 183/84; PULSE 75; RESP 14; TEMP 98.9; O2SAT 100
--- NOTE | 2017-04-01 08:22 | PD ---
HPI . 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 He states that the Simon was placed about a week ago and is scheduled to come out in another week. He reports no other problems. PFSH Past Medical History Arthritis: No Asthma: No Autoimmune Disease: No Heart Rhythm Problems: No Cancer: No Cardiovascular Problems: No High Cholesterol: No Chest Pain: No Congestive Heart Failure: No COPD: No Diabetes: Yes Patient Takes Glucophage: No Dialysis: Yes (HX) Diminished Hearing: No Endocrine: Yes GERD: Yes Genitourinary: Yes (UTI) Hiatal Hernia: No Hypertension: Yes Immune Disorder: No Implanted Vascular Access Dvce: Yes Kidney Stones: No Musculoskeletal: No Neurologic: No Psychiatric: No Reproductive: No Respiratory: No Immunizations Current: Yes Renal Failure: Yes Sleep Apnea: No Thyroid Disease: No Ulcer: No Influenza Vaccination: No Past Surgical History Arteriovenous Shunt: Yes Body Medical Devices: left fistula Genitourinary Surgery: Yes (RIGHT KIDNEY TRANSPLANT) Insulin Pump: Yes Oral Surgery: Yes (tonsil uvulectomy) Tonsillectomy: Yes (AND UVULA) Other Surgery: Yes (AV FISTULA) Social History Alcohol Use: No Tobacco Use: No Substance Use: No Allergies-Medications (Allergen,Severity, Reaction): Coded Allergies: No Known Allergies (Verified Adverse Reaction, Unknown, 03/24/17) Reported Meds & Prescriptions Reported Meds & Active Scripts Active Cephalexin 500 Mg Cap 500 Mg PO Q8HR 10 Days Bethanechol 25 Mg Tab 25 Mg PO Q8HR Reported Prednisone 5 Mg Tab 5 Mg PO DAILY Multi Vitamin Mens (Multiple Vitamin) 1 Tab Tab 1 Cap PO DAILY Vitamin D3 (Cholecalciferol) 1,000 Unit Cap 1,000 Units PO DAILY Amlodipine (Amlodipine Besylate) 5 Mg Tab 5 Mg PO DAILY Astagraf Xl (Tacrolimus) 1 Mg Cap 1 Mg PO BID Astagraf Xl (Tacrolimus) 5 Mg Cap 5 Mg PO BID Phospha 250 Neutral (Pot Phos (Monobasic)-Sod Phos (di/monobasic)) 155-852-130 Mg Tab 250 Tab PO DAILY Pantoprazole (Pantoprazole Sodium) 40 Mg Tab 40 Mg PO DAILY Novolog Inj (Insulin Aspart) 100 Unit/Ml Inj 100 IMPLANT DIRECTED Magnesium 400 Mg Tab 1,000 Mg PO TID Losartan (Losartan Potassium) 50 Mg Tab 50 Mg PO BID Cranberry Plus Vitamin C (Cranberry-Vitamin C-Vitamin E) 4,200-20-3 Mg-Mg-Unit Cap 4,200 Cap PO DAILY Tums (Calcium Carbonate (Antacid)) 500 Mg Chew 500 Mg CHEW PRN Flomax (Tamsulosin HCl) 0.4 Mg Cap 2 Cap PO HS Patient take one in the morning and one at night Viagra (Sildenafil Citrate) 100 Mg Tab 100 Mg PO DAILY PRN Metoprolol Tartrate 50 Mg Tab 50 Mg PO BID Review of Systems Except as stated in HPI: all other systems reviewed are Neg Physical Exam Narrative GENERAL: Awake and alert and in no acute distress. SKIN: Warm and dry. HEAD: Normocephalic/atraumatic. EYES: Pupils are equal. Extraocular movements are intact. NECK: Normal range of motion. CARDIOVASCULAR: Regular rate and rhythm. RESPIRATORY: Nonlabored respirations. MUSCULOSKELETAL: Atraumatic. NEUROLOGICAL: Nonfocal. PSYCHIATRIC: Appropriate mood and affect. Data Data Last Documented VS Vital Signs Date Time Temp Pulse Resp B/P (MAP) Pulse Ox O2 Delivery O2 Flow Rate FiO2 04/01/17 07:43 98.9 75 14 183/84 (117) 100 Orders Orders Urinary Catheter Insert/Apply (04/01/17 08:07) MDM Medical Decision Making Medical Screen Exam Complete: Yes Emergency Medical Condition: Yes Differential Diagnosis Differential diagnosis includes ruptured Simon balloon, obstruction of Simon by debris or blood Narrative Course Patient presents stating that his Simon catheter is leaking. We will change the catheter and discharge him to home. Diagnosis Primary Impression: Simon catheter problem Qualified Codes: T83.9XXA - Unspecified complication of genitourinary prosthetic device, implant and graft, initial encounter Patient Instructions: Simon Catheter Insertion (DC), General Instructions Disposition: 01 DISCHARGE HOME Condition: Stable Emily Huff MD Apr 01, 2017 08:22
== END 2017-04-01 09:22 | disposition home or self-care (01) ==
LOC: NEPC 07:33
DX: T83.031A Leakage of indwelling urethral catheter, initial encounter (principal); I12.0 Hypertensive chronic kidney disease with stage 5 chronic kidney disease or end stage renal disease; E11.22 Type 2 diabetes mellitus with diabetic chronic kidney disease; N18.6 End stage renal disease; Z99.2 Dependence on renal dialysis; Z79.4 Long term (current) use of insulin
CPT/HCPCS: 99283